=== PATIENT | female | born 1990 | race Caucasian/White ===

== ENCOUNTER 2016-11-08 08:21 | Inpatient (IN) | payer OTHER, BC ==
[~2016-11-08] VITALS: Ht 167.6 cm; Wt 74.7 kg
[2016-11-08] VITALS (12 sets, daily range): BP systolic 121–137; BP diastolic 74–77; PULSE 79–110; RESP 14–18; TEMP 98.1–98.4; O2SAT 99–100
[2016-11-08] MEDS ORDERED: ceFAZolin 2 GM PREMIX 50 ML ONE (08:27)
[2016-11-08] MEDS ORDERED: GENTAMICIN 80 MG PREMIX 100 ML ONE (08:27)
[2016-11-08] MEDS ORDERED: ETOMIDATE 20 MG/10 ML VIAL ONE (08:36)
[2016-11-08] MEDS ORDERED: MIDAZOLAM HCL 5 MG/ML VIAL (1 ML) ONE (08:44)
[2016-11-08] MEDS ORDERED: POTASSIUM PHOSPHATE INJ 30 MMOL in SODIUM CHLOR 0.9% 250 ML INJ 250 ML IV PRN (08:45)
[2016-11-08] MEDS ORDERED: RESP: ALBUTEROL 2.5 MG/IPRATROPIUM 0.5 MG NEB (PRN) INH (08:45)
[2016-11-08] MEDS ORDERED: MAGNESIUM SULFATE INJ 4 GM in SODIUM CHLORIDE 0.9% INJ 92 ML IV PRN (08:45)
[2016-11-08] MEDS ORDERED: DEXTROSE 50% IN WATER 50 ML VIAL(D50) IV PUSH PRN (08:45)
[2016-11-08] MEDS ORDERED: MAGNESIUM SULFATE INJ 2 GM in SODIUM CHLORIDE 0.9% INJ 96 ML IV PRN (08:45)
[2016-11-08] MEDS ORDERED: POTASSIUM CHLOR 40 MEQ PREMIX 100 ML IV PRN ×2 (08:45)
[2016-11-08] MEDS ORDERED: POTASSIUM PHOSPHATE MONOBASIC 500 MG TAB PO PRN (08:45)
[2016-11-08] MEDS ORDERED: POTASSIUM PHOSPHATE MONOBASIC 500 MG TAB PO/TUBE PRN (08:45)
[2016-11-08] MEDS ORDERED: MAGNESIUM OXIDE 400 MG TAB PO PRN (08:45)
[2016-11-08] MEDS ORDERED: SODIUM PHOSPHATE INJ 30 MMOL in SODIUM CHLOR 0.9% 250 ML INJ 240 ML IV PRN (08:45)
[2016-11-08] MEDS ORDERED: POTASSIUM CHLOR 20 MEQ PREMIX 100 ML IV PRN ×2 (08:45)
[2016-11-08 08:48] LABS: AUTOMATED NEUTROPHIL # 7.8 TH/MM3 (1.8-7.7); BASOPHIL # 0.1 TH/MM3 (0-0.2); BASOPHIL % 0.4 % (0.0-2.0); EOSINOPHIL # 0.2 TH/MM3 (0-0.4); EOSINOPHIL % 1.1 % (0.0-4.0); HEMATOCRIT 41.4 % (35.0-46.0); HEMO FLAGS AUTO DIFF; LYMPH % 43.2 % (9.0-44.0); LYMPHOCYTE # 6.7 TH/MM3 (1.0-4.8); MEAN CELL VOLUME 93.7 FL (80.0-100.0); MEAN CORPUSCULAR HEMOGLOBIN 30.6 PG (27.0-34.0); MEAN CORPUSCULAR HGB CONC 32.7 % (32.0-36.0); MONO % 5.3 % (0.0-8.0); PLATELET COUNT 277 TH/MM3 (150-450); RED BLOOD COUNT 4.41 MIL/MM3 (4.00-5.30); RED CELL DISTRIBUTION WIDTH 12.7 % (11.6-17.2); WHITE BLOOD COUNT 15.5 TH/MM3 (4.0-11.0)
[2016-11-08 08:55] LABS: I-STAT POTASSIUM 4.5 MMOL/L (3.5-4.9)
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
[2016-11-08 08:58] LABS: APTT (PATIENT) 22.9 SEC (24.3-30.1); PROTHROMBIN TIME - PATIENT 10.6 SEC (9.8-11.6)
[2016-11-08] MEDS ORDERED: IOHEXOL 350 MG/ML 10 ML VIAL (for RAD DIAG) IV ONE (09:07)
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
[2016-11-08 09:14] LABS: BANDS 1 % (0-6); EOSINOPHILS 3 % (0-4); NEUTROPHIL # MANUAL DIFF 6.5 TH/MM3 (1.8-7.7); POLYS (SEG NEUTROPHILS) 41 % (16-70); WBC DIFF SAMPLE 100
[2016-11-08 09:15] LABS: PLATELET ESTIMATE SMEAR NORMAL (NORMAL); PLATELET MORPHOLOGY NORMAL (NORMAL); SCAN/DIFF FINAL DIFF MANUAL
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
[2016-11-08] MEDS ORDERED: ROCURONIUM INJ 50 MG/5 ML VIAL ONE (09:35)
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
[2016-11-08] MEDS ORDERED: RESP: ALBUTEROL 2.5 MG/IPRATROPIUM 0.5 MG NEB (SCH) INH (10:00)
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
[2016-11-08] MEDS ORDERED: GENTAMICIN SULFATE 80 MG/2 ML VIAL ONE ×2 (10:59→13:38)
[2016-11-08] MEDS: fentaNYL DRIP 250 ML IV SCH ×2 (11:21→20:57)
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
[2016-11-08] MEDS ORDERED: PHENYLEPH/NS 1000 MCG/10 ML SYR IV ONE (12:00)
[2016-11-08] MEDS ORDERED: LACTATED RINGER'S 1000 ML INJ 1,000 ML IV ONE (12:00)
[2016-11-08] MEDS: INSULIN NovoLIN REGULAR SUPPLEMENTAL SCALE SQ SCH ×2 (12:00→18:00)
[2016-11-08] MEDS ORDERED: PROPOFOL 200 MG/20 ML AMP IV ONE (12:00)
[2016-11-08 12:45] LABS: BACTERIA, URINE RARE /hpf; BLOOD, URINE LARGE (NEG); COMMENT (UR) CATH-CULTURE IND; CULTURE IF INDICATED CATH CULTURE IND; GLUCOSE,URINE NEG (NEG); KETONE, URINE NEG (NEG); MUCUS URINE FEW /lpf (OCC); NITRITE,URINE NEG (NEG); PH, URINE 5.5 (5.0-8.5); URINE COLOR YELLOW (YELLW/STRAW)
[2016-11-08] MEDS: SODIUM CHLOR 0.9% 1000 ML INJ 1,000 ML IV SCH (14:00)
[2016-11-08 14:06] LABS: BLOOD GAS BASE EXCESS -5.3 mmol/L (-2-2); BLOOD GAS CARBOXYHEMOGLOBIN 0.9 % (0-4); BLOOD GAS HCO3 19 mmol/L (22-26); BLOOD GAS METHEMOGLOBIN 1.1 % (0-2); BLOOD GAS O2 HGB SATURATION 98 % (90-100); BLOOD GAS OXYGEN CONTENT 18.9 Vol % (12.0-20.0); BLOOD GAS PCO2 37 mmHg (38-42); BLOOD GAS PO2 259 mmHg (61-120); BLOOD GAS TOTAL HGB 13.4 G/DL (12.0-16.0)
[2016-11-08 14:08] LABS: CRITICAL VALUE NO; DRAW SITE RT RADIAL; FIO2 50 %; NUMBER OF ARTERIAL PUNCTURES 1; OXYGEN DEVICE VENTILATOR; STAT NO; ULNAR PULSE PRESENT; VENT SETTINGS A/C500/16PEEP5
[2016-11-08] MEDS ORDERED: ENALAPRILAT 1.25 MG/ML VIAL IV PRN (16:30)
[2016-11-08] MEDS ORDERED: MISCELLANEOUS NURSING INFORMATION XX SCH (16:30)
[2016-11-08] MEDS ORDERED: CHLORHEXIDINE GLUCONATE 2 % 1 PACK (2 CLOTHS) TOP PRN (16:30)
[2016-11-08] MEDS ORDERED: ceFAZolin INJ 1,000 MG VIAL IV ONE (17:07)
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
--- NOTE | 2016-11-08 19:07 | RADRPT ---
EXAM DATE/TIME: 11/08/2016 17:54 [facility] COMPARISON: TIBIA/FIBULA RIGHT ( 1 VW), November 08, 2016, 8:15. INDICATIONS : ORIF right tibia. MEDICAL HISTORY : None. SURGICAL HISTORY : None. ENCOUNTER: Subsequent ACUITY: 1 day PAIN SCORE: Non-responsive. LOCATION: Right lower leg. FINDINGS: 4 spot fluoroscopic images obtained in the operating room during a procedure document antegrade intra medullary kavin within the tibia proximal and distal interlocking screws. The hardware traverses the co mminuted mid tibia fracture. The fibular fracture remains visualized and slightly displaced. CONCLUSION: Improved anatomic alignment of the tibia fracture following ORIF. Juan Vizcaino MD on November 08, 2016 at 19:04 Board Certified Radiologist. This report was verified electronically.
--- NOTE | 2016-11-08 19:18 | PD.OP ---
Operative Report Date of Surgery: Nov 08, 2016 Preoperative Diagnosis: (1) Open fracture of right fibula and tibia Postoperative Diagnosis: (1) Open fracture of right fibula and tibia Procedure: 1. Irrigation and Debridement of Open Tib/Fib Fracture 2. ORIF Right Tibial Intramedullary [place] and Screws 3. Placement Left Tibia Wound VAC Over Loosely Closed Open Wound Anesthesia: General Surgeon: Mariusz Matthew MD [employer](s): JANUARY Barrientos Resident Surgeon: none Operation and Findings: See Dictation Mark Montes De Oca Nov 08, 2016 19:18 Mariusz Matthew MD Nov 08, 2016 21:59
[2016-11-08] MEDS ORDERED: fentaNYL CITRATE 250 MCG/5 ML AMP ONE (19:30)
[2016-11-08] MEDS: PANTOPRAZOLE SODIUM 40 MG VIAL IVP SCH (19:40)
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
[2016-11-08] MEDS: PROPOFOL 1000 MG/100 ML INJ 100 ML IV SCH (20:57)
[2016-11-08] MEDS: MAGNESIUM HYDROXIDE SUSP 30 ML CUP PO SCH (21:30)
[2016-11-08] MEDS: DOCUSATE SODIUM 100 MG CAP PO SCH (21:30)
[2016-11-08] MEDS: CHLORHEXIDINE 0.12% (ORAL KIT) 15 ML CUP MT SCH (21:32)
[2016-11-08] MEDS: ceFAZolin 2 GM PREMIX 50 ML IV SCH (22:03)
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
[2016-11-09] VITALS (16 sets, daily range): BP systolic 98–118; BP diastolic 50–56; PULSE 81–118; RESP 11–14; TEMP 97.1–99; O2SAT 96–100
[2016-11-09 00:26] LABS: HEMATOCRIT 33.2 % (35.0-46.0); REVIEW FLAG FINAL
[2016-11-09] MEDS ORDERED: SODIUM CHLOR 0.9% 1000 ML INJ 1,000 ML IV ONE (01:30)
[2016-11-09] MEDS: ACETAMINOPHEN 1000 MG/100 ML VIAL IV PRN ×2 (01:58→15:34)
[2016-11-09] MEDS ORDERED: SODIUM CHLORID 0.9% 500 ML INJ 500 ML IV ONE (02:00)
[2016-11-09] MEDS: SODIUM CHLOR 0.9% 1000 ML INJ 1,000 ML IV SCH ×2 (04:18→14:40)
[2016-11-09] MEDS: CHLORHEXIDINE GLUCONATE 2 % 1 PACK (2 CLOTHS) TOP SCH (04:18)
[2016-11-09] MEDS: INSULIN NovoLIN REGULAR SUPPLEMENTAL SCALE SQ SCH ×4 (05:57→18:00)
[2016-11-09 06:04] LABS: HEMATOCRIT 22.1 % (35.0-46.0); MEAN CORPUSCULAR HEMOGLOBIN 31.6 PG (27.0-34.0); MEAN CORPUSCULAR HGB CONC 34.4 % (32.0-36.0); PLATELET COUNT 117 TH/MM3 (150-450); RED CELL DISTRIBUTION WIDTH 14.7 % (11.6-17.2); REVIEW FLAG FINAL; WHITE BLOOD COUNT 7.5 TH/MM3 (4.0-11.0)
[2016-11-09] MEDS: PROPOFOL 1000 MG/100 ML INJ 100 ML IV SCH (06:31)
--- NOTE | 2016-11-09 06:46 | RADRPT ---
EXAM DATE/TIME: 11/09/2016 05:25 [facility] COMPARISON: CT THORAX W CONTRAST, November 08, 2016, 8:44. INDICATIONS : Short of breath. MEDICAL HISTORY : None. SURGICAL HISTORY : None. ENCOUNTER: Subsequent ACUITY: 2 days PAIN SCORE: Non-responsive. LOCATION: Bilateral chest FINDINGS: Mild left mid lung infiltrate not significantly changed. No pleural effusion or pneumothorax seen. Endotracheal tube tip is approximately 4 cm above the eamon. There is a nasogastric tube that course s into the stomach, and doubles back on itself and has its tip in the lower esophagus. The side hole is just below the GE junction. CONCLUSION: 1. Mild left midlung consolidation not significantly changed. 2. Endotracheal tube tip 4 cm above the eamon. 3. Coiled nasogastric tube. The tip is in the lower esophagus. Please see above. Juan Etienne MD on November 09, 2016 at 6:43 Board Certified Radiologist. This report was verified electronically.
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
[2016-11-09] MEDS: CHLORHEXIDINE 0.12% (ORAL KIT) 15 ML CUP MT SCH ×2 (07:48→20:00)
[2016-11-09] MEDS: DOCUSATE SODIUM 100 MG CAP PO SCH ×2 (07:49→21:00)
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
[2016-11-09] MEDS: ceFAZolin 2 GM PREMIX 50 ML IV SCH (10:04)
[2016-11-09 10:07] LABS: POTASSIUM 4.4 MEQ/L (3.5-5.1)
[2016-11-09 10:08] LABS: BICARBONATE 22.6 MEQ/L (21.0-32.0)
[2016-11-09 10:27] LABS: CALCIUM-PROTEIN CORRECTED 7.5 MG/DL (8.5-10.1)
[2016-11-09 10:54] LABS: HEMATOCRIT 29.5 % (35.0-46.0); REVIEW FLAG FINAL
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
[2016-11-09] MEDS: PANTOPRAZOLE SODIUM 40 MG VIAL IVP SCH (15:44)
[2016-11-09] MEDS: METHOCARBAMOL 500 MG TAB PO SCH (15:44)
[2016-11-09] MEDS: MORPHINE SULFATE 4 MG/ML INJ IV PUSH PRN ×3 (15:44→23:52)
[2016-11-09 16:41] LABS: HEMATOCRIT 22.9 % (35.0-46.0); REVIEW FLAG FINAL
[2016-11-09] MEDS: MAGNESIUM HYDROXIDE SUSP 30 ML CUP PO SCH (21:00)
[2016-11-09 23:45] LABS: HEMATOCRIT 35.7 % (35.0-46.0); REVIEW FLAG FINAL
[2016-11-10] VITALS (14 sets, daily range): BP systolic 113–143; BP diastolic 63–81; PULSE 86–112; RESP 14–20; TEMP 98.4–101; O2SAT 95–100
[2016-11-10] MEDS: ACETAMINOPHEN 1000 MG/100 ML VIAL IV PRN ×3 (00:34→20:14)
[2016-11-10] MEDS: MORPHINE SULFATE 4 MG/ML INJ IV PUSH PRN ×2 (03:33→11:53)
[2016-11-10 04:25] LABS: AUTOMATED NEUTROPHIL # 10.6 TH/MM3 (1.8-7.7); BASOPHIL % 0.2 % (0.0-2.0); EOSINOPHIL # 0.1 TH/MM3 (0-0.4); EOSINOPHIL % 0.8 % (0.0-4.0); HEMATOCRIT 31.4 % (35.0-46.0); HEMO FLAGS DIFF FINAL; LYMPH % 8.5 % (9.0-44.0); LYMPHOCYTE # 1.1 TH/MM3 (1.0-4.8); MEAN CELL VOLUME 87.2 FL (80.0-100.0); MEAN CORPUSCULAR HEMOGLOBIN 29.9 PG (27.0-34.0); MEAN CORPUSCULAR HGB CONC 34.3 % (32.0-36.0); MONO % 9.7 % (0.0-8.0); NEUT % 80.8 % (16.0-70.0); PLATELET COUNT 105 TH/MM3 (150-450); RED CELL DISTRIBUTION WIDTH 16.8 % (11.6-17.2); WHITE BLOOD COUNT 13.1 TH/MM3 (4.0-11.0)
[2016-11-10 04:31] LABS: BICARBONATE 27.4 MEQ/L (21.0-32.0); CALCIUM-PROTEIN CORRECTED 7.7 MG/DL (8.5-10.1); MAGNESIUM 1.6 MG/DL (1.5-2.5); TOTAL BILIRUBIN ADULT 0.7 MG/DL (0.2-1.0)
[2016-11-10] MEDS: CHLORHEXIDINE GLUCONATE 2 % 1 PACK (2 CLOTHS) TOP SCH (05:00)
[2016-11-10] MEDS: SODIUM CHLOR 0.9% 1000 ML INJ 1,000 ML IV SCH ×2 (05:00→14:14)
[2016-11-10] MEDS: INSULIN NovoLIN REGULAR SUPPLEMENTAL SCALE SQ SCH ×2 (05:07)
[2016-11-10 05:39] LABS: BLOOD GAS BASE EXCESS 0.7 mmol/L (-2-2); BLOOD GAS CARBOXYHEMOGLOBIN 1.6 % (0-4); BLOOD GAS HCO3 26 mmol/L (22-26); BLOOD GAS METHEMOGLOBIN 0.8 % (0-2); BLOOD GAS O2 HGB SATURATION 96 % (90-100); BLOOD GAS OXYGEN CONTENT 13.7 Vol % (12.0-20.0); BLOOD GAS PCO2 49 mmHg (38-42); BLOOD GAS PO2 98 mmHg (61-120); BLOOD GAS TOTAL HGB 10.1 G/DL (12.0-16.0); CRITICAL VALUE NO; DRAW SITE LT RADIAL; LITER FLOW 4 L/M; NUMBER OF ARTERIAL PUNCTURES 1; OXYGEN DEVICE NASAL CANNULA; STAT NO; TEMP CORR TO 98.6; ULNAR PULSE PRESENT
--- NOTE | 2016-11-10 05:39 | RADRPT ---
EXAM DATE/TIME: 11/10/2016 04:00 [facility] COMPARISON: CHEST SINGLE AP, November 09, 2016, 5:25. INDICATIONS : Shortness of breath. MEDICAL HISTORY : None. SURGICAL HISTORY : None. ENCOUNTER: Subsequent ACUITY: 3 days PAIN SCORE: 7/10 LOCATION: Bilateral chest FINDINGS: Mild consolidation developing left lung base. No effusion demonstrated. No pneumothorax. Heart size stable, upper limits of normal. Endotracheal tube and nasogastric tube have been removed. CONCLUSION: Interim extubation and nasogastric tube removal. Mild left base consolidation has developed. Juan Etienne MD on November 10, 2016 at 5:36 Board Certified Radiologist. This report was verified electronically.
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
[2016-11-10] MEDS: CHLORHEXIDINE 0.12% (ORAL KIT) 15 ML CUP MT SCH ×2 (07:48→20:00)
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
[2016-11-10] MEDS: METHOCARBAMOL 500 MG TAB PO SCH ×4 (08:00→23:36)
[2016-11-10] MEDS: LACTULOSE SYRUP 20 GM/30 ML CUP PO SCH (08:30)
[2016-11-10] MEDS: DOCUSATE SODIUM 100 MG CAP PO SCH ×2 (08:30→20:01)
[2016-11-10 09:07] LABS: HEMATOCRIT 28.7 % (35.0-46.0)
[2016-11-10 09:13] LABS: REVIEW FLAG FINAL
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
[2016-11-10] MEDS ORDERED: PROZ20CA11 PO (10:05)
[2016-11-10] MEDS: FLUoxetine HCL 20 MG CAP PO SCH (10:15)
[2016-11-10] MEDS: ENOXAPARIN SODIUM 40 MG/0.4 ML SYRINGE SQ SCH (10:40)
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
[2016-11-10] MEDS: PANTOPRAZOLE SODIUM 40 MG VIAL IVP SCH (17:00)
[2016-11-10] MEDS: MAGNESIUM HYDROXIDE SUSP 30 ML CUP PO SCH (20:01)
[2016-11-11] VITALS (11 sets, daily range): BP systolic 105–122; BP diastolic 60–87; PULSE 83–107; RESP 13–18; TEMP 98.4–99.7; O2SAT 95–100
[2016-11-11] MEDS: MORPHINE SULFATE 4 MG/ML INJ IV PUSH PRN (03:04)
[2016-11-11 04:16] LABS: AUTOMATED NEUTROPHIL # 10.6 TH/MM3 (1.8-7.7); BASOPHIL % 0.2 % (0.0-2.0); EOSINOPHIL # 0.2 TH/MM3 (0-0.4); EOSINOPHIL % 1.5 % (0.0-4.0); HEMATOCRIT 29.6 % (35.0-46.0); HEMO FLAGS DIFF FINAL; LYMPH % 7.8 % (9.0-44.0); MEAN CELL VOLUME 87.8 FL (80.0-100.0); MEAN CORPUSCULAR HEMOGLOBIN 29.9 PG (27.0-34.0); MEAN CORPUSCULAR HGB CONC 34.1 % (32.0-36.0); MONO % 9.8 % (0.0-8.0); NEUT % 80.7 % (16.0-70.0); PLATELET COUNT 116 TH/MM3 (150-450); RED BLOOD COUNT 3.37 MIL/MM3 (4.00-5.30); RED CELL DISTRIBUTION WIDTH 16.1 % (11.6-17.2); WHITE BLOOD COUNT 13.2 TH/MM3 (4.0-11.0)
[2016-11-11 04:29] LABS: ANION GAP 9 MEQ/L (5-15); AST (GOT) 76 U/L (15-37); BICARBONATE 26.5 MEQ/L (21.0-32.0); BLOOD UREA NITROGEN 5 MG/DL (7-18); CHLORIDE 106 MEQ/L (98-107); GLOMERULAR FILTRATION RATE 197 ML/MIN (>89); MAGNESIUM 2.1 MG/DL (1.5-2.5); POTASSIUM 3.3 MEQ/L (3.5-5.1); SODIUM (NA) 141 MEQ/L (136-145)
[2016-11-11 04:39] LABS: ALKALINE PHOSPHATASE 59 U/L (45-117); ALT (GPT) 66 U/L (10-53); TOTAL BILIRUBIN ADULT 0.5 MG/DL (0.2-1.0)
[2016-11-11] MEDS: SODIUM CHLOR 0.9% 1000 ML INJ 1,000 ML IV SCH (06:40)
[2016-11-11] MEDS: CHLORHEXIDINE GLUCONATE 2 % 1 PACK (2 CLOTHS) TOP SCH (07:00)
[2016-11-11] MEDS: CHLORHEXIDINE 0.12% (ORAL KIT) 15 ML CUP MT SCH (07:55)
[2016-11-11] MEDS: METHOCARBAMOL 500 MG TAB PO SCH ×2 (08:12→16:25)
[2016-11-11] MEDS: FLUoxetine HCL 20 MG CAP PO SCH (08:12)
[2016-11-11] MEDS: ENOXAPARIN SODIUM 40 MG/0.4 ML SYRINGE SQ SCH (08:12)
[2016-11-11] MEDS: DOCUSATE SODIUM 100 MG CAP PO SCH ×2 (08:12→20:31)
[2016-11-11] MEDS: LACTULOSE SYRUP 20 GM/30 ML CUP PO SCH (08:12)
[2016-11-11] MEDS ORDERED: BISACODYL 10 MG SUPP RECTAL ONE (09:00)
[2016-11-11] MEDS ORDERED: BISACODYL EC 5 MG TABEC PO ONE (09:00)
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
[2016-11-11] MEDS ORDERED: BUMETANIDE INJ 1 MG/4 ML VIAL IV PUSH ONE (14:30)
[2016-11-11] MEDS: PANTOPRAZOLE SODIUM 40 MG VIAL IVP SCH (16:25)
[2016-11-11] MEDS: MAGNESIUM HYDROXIDE SUSP 30 ML CUP PO SCH (20:31)
[2016-11-11] MEDS: ACETAMINOPHEN 1000 MG/100 ML VIAL IV PRN (21:36)
[2016-11-11] MEDS: oxyCODONE/ACETAMINOPHEN 5 MG/325 MG TAB PO PRN (21:37)
[2016-11-12] VITALS (14 sets, daily range): BP systolic 115–146; BP diastolic 54–93; PULSE 67–93; RESP 14–22; TEMP 97.4–99.5; O2SAT 92–98
[2016-11-12] MEDS: METHOCARBAMOL 500 MG TAB PO SCH ×4 (02:39→23:47)
[2016-11-12] MEDS: CHLORHEXIDINE GLUCONATE 2 % 1 PACK (2 CLOTHS) TOP SCH (05:16)
[2016-11-12] MEDS: oxyCODONE/ACETAMINOPHEN 5 MG/325 MG TAB PO PRN (06:18)
[2016-11-12 06:27] LABS: AUTOMATED NEUTROPHIL # 14.9 TH/MM3 (1.8-7.7); BASOPHIL # 0.1 TH/MM3 (0-0.2); BASOPHIL % 0.3 % (0.0-2.0); EOSINOPHIL # 0.4 TH/MM3 (0-0.4); EOSINOPHIL % 2.2 % (0.0-4.0); HEMATOCRIT 30.6 % (35.0-46.0); LYMPH % 10.8 % (9.0-44.0); LYMPHOCYTE # 2.1 TH/MM3 (1.0-4.8); MEAN CELL VOLUME 88.4 FL (80.0-100.0); MEAN CORPUSCULAR HEMOGLOBIN 30.4 PG (27.0-34.0); MEAN CORPUSCULAR HGB CONC 34.4 % (32.0-36.0); MONO % 10.3 % (0.0-8.0); NEUT % 76.4 % (16.0-70.0); PLATELET COUNT 178 TH/MM3 (150-450); RED BLOOD COUNT 3.47 MIL/MM3 (4.00-5.30); RED CELL DISTRIBUTION WIDTH 15.5 % (11.6-17.2); WHITE BLOOD COUNT 19.6 TH/MM3 (4.0-11.0)
[2016-11-12 06:43] LABS: ALT (GPT) 53 U/L (10-53); ANION GAP 7 MEQ/L (5-15); AST (GOT) 51 U/L (15-37); BICARBONATE 30.4 MEQ/L (21.0-32.0); BLOOD UREA NITROGEN 8 MG/DL (7-18); CHLORIDE 103 MEQ/L (98-107); GLOMERULAR FILTRATION RATE 197 ML/MIN (>89); MAGNESIUM 2.4 MG/DL (1.5-2.5); POTASSIUM 3.3 MEQ/L (3.5-5.1); SODIUM (NA) 140 MEQ/L (136-145)
[2016-11-12 06:46] LABS: ALKALINE PHOSPHATASE 67 U/L (45-117); TOTAL BILIRUBIN ADULT 0.7 MG/DL (0.2-1.0)
[2016-11-12 07:30] LABS: HEMO FLAGS AUTO DIFF
[2016-11-12 07:35] LABS: BANDS 7 % (0-6); CORRECTED NUCLEATED RBC 1 /100 WBC (0-0); EOSINOPHILS 3 % (0-4); NEUTROPHIL # MANUAL DIFF 15.9 TH/MM3 (1.8-7.7); PLATELET ESTIMATE SMEAR NORMAL (NORMAL); PLATELET MORPHOLOGY CLUMPED (NORMAL); POLYS (SEG NEUTROPHILS) 74 % (16-70); SCAN/DIFF FINAL DIFF MANUAL; WBC DIFF SAMPLE 100
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
[2016-11-12] MEDS: DOCUSATE SODIUM 100 MG CAP PO SCH (08:18)
[2016-11-12] MEDS: LACTULOSE SYRUP 20 GM/30 ML CUP PO SCH (08:18)
[2016-11-12] MEDS: FLUoxetine HCL 20 MG CAP PO SCH (08:18)
[2016-11-12] MEDS: DOCUSATE SODIUM 50 MG/SENNA 8.6 MG TAB PO SCH ×2 (09:00→20:39)
[2016-11-12] MEDS: ENOXAPARIN SODIUM 40 MG/0.4 ML SYRINGE SQ SCH (10:44)
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
[2016-11-12] MEDS: ACETAMINOPHEN 325 MG TAB PO PRN (16:23)
[2016-11-12] MEDS: PANTOPRAZOLE SODIUM 40 MG VIAL IVP SCH (16:23)
[2016-11-12] MEDS: ONDANSETRON HCL 4 MG/2 ML VIAL IV PRN (17:01)
[2016-11-12] MEDS: MAGNESIUM HYDROXIDE SUSP 30 ML CUP PO SCH (20:39)
--- NOTE | 2016-11-12 22:45 | RADRPT ---
EXAM DATE/TIME: 11/12/2016 22:17 [facility] COMPARISON: No previous studies available for comparison. INDICATIONS : Abdominal distension, nausea starting today MEDICAL HISTORY : None. SURGICAL HISTORY : None. ENCOUNTER: Initial ACUITY: 1 day PAIN SCORE: Non-responsive. LOCATION: Bilateral abdomen FINDINGS: 2 supine frontal views of the abdomen show gas distended loops of large bowel and small bowel. Gas is seen to the level of the rectal vault. No gross pneumoperitoneum in the supine images. A left lower lobe intra-alveolar infiltrate observed. No organomegaly. CONCLUSION: 1. Ileus type bowel gas pattern. 2. Left lower lobe infiltrate. Marquise Rowan Jr., MD on November 12, 2016 at 22:42 Board Certified Radiologist. This report was verified electronically.
[2016-11-12] MEDS ORDERED: MORPHINE SULFATE 4 MG/ML INJ IV PUSH PRN (23:45)
[2016-11-12] MEDS: SODIUM CHLOR 0.9% 1000 ML INJ 1,000 ML IV SCH (23:49)
[2016-11-13] VITALS (7 sets, daily range): BP systolic 130–149; BP diastolic 78–92; PULSE 66–80; RESP 18–20; TEMP 96.1–98.5; O2SAT 91–100
[2016-11-13] MEDS: CHLORHEXIDINE GLUCONATE 2 % 1 PACK (2 CLOTHS) TOP SCH (00:03)
[2016-11-13 06:13] LABS: ALT (GPT) 50 U/L (10-53); ANION GAP 9 MEQ/L (5-15); AST (GOT) 49 U/L (15-37); BICARBONATE 24.3 MEQ/L (21.0-32.0); BLOOD UREA NITROGEN 9 MG/DL (7-18); CHLORIDE 104 MEQ/L (98-107); GLOMERULAR FILTRATION RATE 197 ML/MIN (>89); MAGNESIUM 2.3 MG/DL (1.5-2.5); POTASSIUM 3.9 MEQ/L (3.5-5.1)
[2016-11-13 06:15] LABS: ALKALINE PHOSPHATASE 63 U/L (45-117); TOTAL BILIRUBIN ADULT 0.7 MG/DL (0.2-1.0)
[2016-11-13 06:23] LABS: SODIUM (NA) 137 MEQ/L (136-145)
[2016-11-13 07:09] LABS: AUTOMATED NEUTROPHIL # 11.7 TH/MM3 (1.8-7.7); BASOPHIL # 0.1 TH/MM3 (0-0.2); BASOPHIL % 0.6 % (0.0-2.0); EOSINOPHIL # 0.2 TH/MM3 (0-0.4); EOSINOPHIL % 1.4 % (0.0-4.0); HEMATOCRIT 34.8 % (35.0-46.0); LYMPH % 10.5 % (9.0-44.0); LYMPHOCYTE # 1.7 TH/MM3 (1.0-4.8); MEAN CELL VOLUME 87.1 FL (80.0-100.0); MEAN CORPUSCULAR HEMOGLOBIN 29.6 PG (27.0-34.0); NEUT % 73.5 % (16.0-70.0); PLATELET COUNT 147 TH/MM3 (150-450); RED BLOOD COUNT 3.99 MIL/MM3 (4.00-5.30); RED CELL DISTRIBUTION WIDTH 15.2 % (11.6-17.2); WHITE BLOOD COUNT 15.9 TH/MM3 (4.0-11.0)
[2016-11-13 07:10] LABS: HEMO FLAGS AUTO DIFF
[2016-11-13 07:44] LABS: BANDS 6 % (0-6); CORRECTED NUCLEATED RBC 1 /100 WBC (0-0); EOSINOPHILS 4 % (0-4); METAMYELOCYTES 1 % (0-1); POLYS (SEG NEUTROPHILS) 62 % (16-70); SCAN/DIFF FINAL DIFF MANUAL; WBC DIFF SAMPLE 100
[2016-11-13] MEDS ORDERED: MAGNESIUM CITRATE SOLN 300 ML BTL PO ONE (08:15)
[2016-11-13] MEDS: METHOCARBAMOL 500 MG TAB PO SCH ×3 (08:44→23:20)
[2016-11-13] MEDS: LACTULOSE SYRUP 20 GM/30 ML CUP PO SCH (08:44)
[2016-11-13] MEDS: FLUoxetine HCL 20 MG CAP PO SCH (08:44)
[2016-11-13] MEDS: DOCUSATE SODIUM 50 MG/SENNA 8.6 MG TAB PO SCH ×2 (08:45→20:52)
[2016-11-13] MEDS: SODIUM CHLOR 0.9% 1000 ML INJ 1,000 ML IV SCH ×2 (08:45→18:25)
[2016-11-13] MEDS: ENOXAPARIN SODIUM 40 MG/0.4 ML SYRINGE SQ SCH (11:12)
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
[2016-11-13] MEDS ORDERED: BISACODYL EC 5 MG TABEC PO ONE (15:00)
[2016-11-13] MEDS ORDERED: BISACODYL 10 MG SUPP RECTAL ONE (15:00)
[2016-11-13] MEDS: PANTOPRAZOLE SODIUM 40 MG VIAL IVP SCH (18:23)
[2016-11-13] MEDS: SODIUM CHLORIDE 0.9% FLUSH 10 ML FLUSH IV FLUSH PRN (18:23)
[2016-11-13] MEDS: MAGNESIUM HYDROXIDE SUSP 30 ML CUP PO SCH (20:51)
[2016-11-14] VITALS (7 sets, daily range): BP systolic 116–133; BP diastolic 65–76; PULSE 69–83; RESP 16–20; TEMP 96.9–99; O2SAT 95–100
[2016-11-14] MEDS: CHLORHEXIDINE GLUCONATE 2 % 1 PACK (2 CLOTHS) TOP SCH (00:58)
[2016-11-14] MEDS: SODIUM CHLOR 0.9% 1000 ML INJ 1,000 ML IV SCH ×2 (02:14→17:27)
[2016-11-14] MEDS ORDERED: QUEtiapine FUMARATE 25 MG TAB PO SCH (03:00)
[2016-11-14 07:42] LABS: AUTOMATED NEUTROPHIL # 7.2 TH/MM3 (1.8-7.7); BASOPHIL % 0.3 % (0.0-2.0); EOSINOPHIL # 0.4 TH/MM3 (0-0.4); EOSINOPHIL % 3.8 % (0.0-4.0); HEMATOCRIT 30.1 % (35.0-46.0); LYMPH % 16.2 % (9.0-44.0); LYMPHOCYTE # 1.8 TH/MM3 (1.0-4.8); MEAN CELL VOLUME 88.3 FL (80.0-100.0); MEAN CORPUSCULAR HEMOGLOBIN 29.9 PG (27.0-34.0); MEAN CORPUSCULAR HGB CONC 33.9 % (32.0-36.0); MONO % 13.1 % (0.0-8.0); NEUT % 66.6 % (16.0-70.0); PLATELET COUNT 206 TH/MM3 (150-450); RED BLOOD COUNT 3.41 MIL/MM3 (4.00-5.30); RED CELL DISTRIBUTION WIDTH 14.9 % (11.6-17.2); WHITE BLOOD COUNT 10.8 TH/MM3 (4.0-11.0)
[2016-11-14 07:52] LABS: HEMO FLAGS AUTO DIFF
[2016-11-14] MEDS: METHOCARBAMOL 500 MG TAB PO SCH ×2 (08:00→16:00)
[2016-11-14 08:10] LABS: ANION GAP 11 MEQ/L (5-15); AST (GOT) 64 U/L (15-37); BICARBONATE 22.9 MEQ/L (21.0-32.0); BLOOD UREA NITROGEN 9 MG/DL (7-18); CHLORIDE 104 MEQ/L (98-107); GLOMERULAR FILTRATION RATE 278 ML/MIN (>89); MAGNESIUM 2.4 MG/DL (1.5-2.5); POTASSIUM 3.3 MEQ/L (3.5-5.1); SODIUM (NA) 138 MEQ/L (136-145)
[2016-11-14 08:13] LABS: ALKALINE PHOSPHATASE 64 U/L (45-117); ALT (GPT) 61 U/L (10-53); TOTAL BILIRUBIN ADULT 0.9 MG/DL (0.2-1.0)
[2016-11-14 09:02] LABS: BANDS 2 % (0-6); EOSINOPHILS 4 % (0-4); METAMYELOCYTES 2 % (0-1); MYELOCYTES 1 % (0-0); NEUTROPHIL # MANUAL DIFF 8.3 TH/MM3 (1.8-7.7); PLATELET ESTIMATE SMEAR NORMAL (NORMAL); PLATELET MORPHOLOGY NORMAL (NORMAL); POLYS (SEG NEUTROPHILS) 72 % (16-70); SCAN/DIFF FINAL DIFF MANUAL; WBC DIFF SAMPLE 100
[2016-11-14] MEDS ORDERED: POTASSIUM CHLORIDE 20 MEQ CONTROLLED RELEASE TAB PO ONE (09:30)
[2016-11-14] MEDS: DOCUSATE SODIUM 50 MG/SENNA 8.6 MG TAB PO SCH ×2 (09:59→20:53)
[2016-11-14] MEDS: QUEtiapine FUMARATE 25 MG TAB PO SCH ×3 (09:59→20:56)
[2016-11-14] MEDS: LACTULOSE SYRUP 20 GM/30 ML CUP PO SCH (09:59)
[2016-11-14] MEDS ORDERED: ACETAMINOPHEN 325 MG TAB PO PRN (10:00)
[2016-11-14] MEDS: FLUoxetine HCL 20 MG CAP PO SCH (10:02)
[2016-11-14] MEDS: ENOXAPARIN SODIUM 40 MG/0.4 ML SYRINGE SQ SCH (10:03)
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
[2016-11-14] MEDS: SODIUM CHLORIDE 0.9% FLUSH 10 ML FLUSH IV FLUSH PRN (17:26)
[2016-11-14] MEDS: PANTOPRAZOLE SODIUM 40 MG VIAL IVP SCH (17:26)
[2016-11-14] MEDS ORDERED: POTASSIUM CHLORIDE 10 MEQ CAP PO ONE (18:00)
[2016-11-14] MEDS: MAGNESIUM HYDROXIDE SUSP 30 ML CUP PO SCH (20:53)
[2016-11-15 00:43] VITALS: BP 125/79; PULSE 86; RESP 17; TEMP 99.9; O2SAT 94
[2016-11-15] MEDS: CHLORHEXIDINE GLUCONATE 2 % 1 PACK (2 CLOTHS) TOP SCH (00:46)
[2016-11-15] MEDS: SODIUM CHLOR 0.9% 1000 ML INJ 1,000 ML IV SCH ×2 (00:54→11:00)
[2016-11-15] MEDS: ACETAMINOPHEN 325 MG TAB PO PRN ×2 (04:18→23:43)
[2016-11-15 07:04] LABS: HEMATOCRIT 29.9 % (35.0-46.0); MEAN CELL VOLUME 88.4 FL (80.0-100.0); MEAN CORPUSCULAR HEMOGLOBIN 29.4 PG (27.0-34.0); MEAN CORPUSCULAR HGB CONC 33.2 % (32.0-36.0); PLATELET COUNT 231 TH/MM3 (150-450); RED BLOOD COUNT 3.38 MIL/MM3 (4.00-5.30); REVIEW FLAG FINAL; WHITE BLOOD COUNT 11.8 TH/MM3 (4.0-11.0)
[2016-11-15] MEDS: METHOCARBAMOL 500 MG TAB PO SCH ×3 (07:17→15:23)
[2016-11-15 07:24] LABS: BICARBONATE 24.4 MEQ/L (21.0-32.0); POTASSIUM 3.3 MEQ/L (3.5-5.1)
[2016-11-15 07:47] LABS: CALCIUM-PROTEIN CORRECTED 8.4 MG/DL (8.5-10.1)
[2016-11-15 07:59] VITALS: BP 132/75; PULSE 71; RESP 18; TEMP 96; O2SAT 94
[2016-11-15] MEDS: LACTULOSE SYRUP 20 GM/30 ML CUP PO SCH (09:00)
[2016-11-15] MEDS: QUEtiapine FUMARATE 25 MG TAB PO SCH (09:00)
[2016-11-15] MEDS: DOCUSATE SODIUM 50 MG/SENNA 8.6 MG TAB PO SCH ×2 (09:00→21:00)
[2016-11-15] MEDS: FLUoxetine HCL 20 MG CAP PO SCH (09:32)
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
[2016-11-15] MEDS: ENOXAPARIN SODIUM 40 MG/0.4 ML SYRINGE SQ SCH (09:37)
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
[2016-11-15 11:52] VITALS: BP 123/76; PULSE 78; RESP 18; TEMP 96.4; O2SAT 97
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
[2016-11-15 15:42] VITALS: BP 127/81; PULSE 79; RESP 18; TEMP 96; O2SAT 97
--- NOTE | 2016-11-15 17:58 | PD.WCN.NOT ---
Wound Consult Description: Patient seen on for evaluation of wounds to R medial calf and L hip. Removed Dressing to R medial calf to reveal large abrasion. Wound presents with 100% pink tissue and cant serous drainage without odor. Wound measures ~10 cm x ~11 cm x~<0.1cm. Periwound is unremarkable.Cleansed wound with normal saline and applied Xeroform dressing in single layer over wound and covered with bordered gauze. skin prep applied before applying adhesive dressing. Reclined patient back in recliner chair and positioned patient slightly to R side. Removed ABD pad and bordered gauze dressing in place to reveal wounds L hip area. 2 full thickness wounds assessed. Wound bed to larger L hip wound that is located more posteriorly, presents with full thickness skin loss that is trauma related. Wound bed noted with ~20% red non granulation tissue, ~70% white facia, ~10% yellow tissue. Wound is draining a moderate amount of sero- sanguinous drainage.Wound measures ~4cm x ~2cm x ~0.4 cm. Periwound presents with ecchymosis between 1 and 6 o'clock Wound to L hip that is noted more anteriorly presents smaller ~1 cm x ~1 cm x ~ 0.1 cm.Wound is noted with 50% pink tissue and 50% yellow tissue.Wound has scant sero-sanguinous drainage without odor. Cleansed both wounds to L hip with wound cleanser and applied optilock and secured with bordered gauze. Applied skin prep before applying adhesive dressing Communicated with: LAURI Martin and Thea SIN for Trauma Recommendation: Recommend to cleanse wound to R medial calf with normal saline and apply Xeroform gauze dressing in place just over wound bed and secure with bordered gauze. Please change dressing every other day or PRN if saturated or dislodged Please cleanse wounds to L hip with wound cleanser or normal saline and apply oil emulsion gauze over exposed facia. Cover with Maxorb II dressing (calcium alginate) and secure dressings with ABD pad and tape. Please apply skin prep before applying adhesives to skin.Change dressing every 2 days or PRN if saturated or dislodged. Ostomy Date of Surgery: Nov 08, 2016 [facility] She[facility] Nov 15, 2016 17:58
[2016-11-15] MEDS ORDERED: ENOX40P SQ (19:14)
[2016-11-15] MEDS ORDERED: Lactulose Liq PO (19:14)
[2016-11-15] MEDS ORDERED: MAGN400S PO (19:14)
[2016-11-15] MEDS ORDERED: ACET1TAB86 PO (19:14)
[2016-11-15] MEDS ORDERED: METH500T3 PO (19:14)
[2016-11-15] MEDS ORDERED: FLUO20CA12 PO (19:14)
[2016-11-15] MEDS ORDERED: SENN1TAB PO (19:14)
[2016-11-15] MEDS ORDERED: FAMO20TA2 PO (19:14)
[2016-11-15 20:10] VITALS: BP 116/76; PULSE 76; RESP 16; TEMP 98.8; O2SAT 98
[2016-11-15] MEDS: MAGNESIUM HYDROXIDE SUSP 30 ML CUP PO SCH (21:00)
[2016-11-15] MEDS ORDERED: FAMOTIDINE 20 MG TAB PO SCH (21:00)
[2016-11-15] MEDS: SODIUM CHLORIDE 0.9% FLUSH 10 ML FLUSH IV FLUSH PRN (21:11)
[2016-11-15] MEDS: METHOCARBAMOL 500 MG TAB PO PRN (22:10)
[2016-11-16 00:10] VITALS: BP 136/83; PULSE 66; RESP 16; TEMP 97.1; O2SAT 100
[2016-11-16 04:50] VITALS: BP 120/74; PULSE 59; RESP 16; TEMP 97.2; O2SAT 100
[2016-11-16] MEDS: METHOCARBAMOL 500 MG TAB PO PRN (07:41)
[2016-11-16] MEDS: FLUoxetine HCL 20 MG CAP PO SCH (07:41)
[2016-11-16] MEDS: ACETAMINOPHEN 325 MG TAB PO PRN (07:43)
[2016-11-16] MEDS: DOCUSATE SODIUM 50 MG/SENNA 8.6 MG TAB PO SCH (07:47)
[2016-11-16] MEDS: LACTULOSE SYRUP 20 GM/30 ML CUP PO SCH (07:47)
[2016-11-16 08:00] VITALS: BP 126/85; PULSE 63; RESP 17; TEMP 96; O2SAT 98
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
[2016-11-16] MEDS: ONDANSETRON HCL 4 MG/2 ML VIAL IV PRN (10:12)
[2016-11-16] MEDS: ENOXAPARIN SODIUM 40 MG/0.4 ML SYRINGE SQ SCH (10:13)
[2016-11-16 11:23] VITALS: O2SAT 98
[2016-11-16 12:00] VITALS: BP 125/80; PULSE 64; RESP 17; TEMP 98.1; O2SAT 98
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
== END 2016-11-16 14:47 | DRG 957 ==
LOC: NEPI 08:21 → NEDA 09:18 → EDBD 09:18 → N03B 09:28 → N06B 11-12 14:14
PROVIDERS: ADMIT Surgery; ATTEND Surgery
PROC: 0BH17EZ Insertion of Endotracheal Airway into Trachea, Via Natural or Artificial Opening (ICD-10-PCS; 2016-11-08)
PROC: 5A1935Z Respiratory Ventilation, Less than 24 Consecutive Hours (ICD-10-PCS; 2016-11-08)
PROC: 30233N1 Transfusion of Nonautologous Red Blood Cells into Peripheral Vein, Percutaneous Approach (ICD-10-PCS; 2016-11-08)
PROC: 0QSG06Z Reposition Right Tibia with Intramedullary Internal Fixation Device, Open Approach (ICD-10-PCS; principal; 2016-11-08 16:37)
DX: S82.291B Other fracture of shaft of right tibia, initial encounter for open fracture type I or II (principal); J96.01 Acute respiratory failure with hypoxia; S36.114A Minor laceration of liver, initial encounter; S12.000A Unspecified displaced fracture of first cervical vertebra, initial encounter for closed fracture; G93.40 Encephalopathy, unspecified; S36.030A Superficial (capsular) laceration of spleen, initial encounter; J96.02 Acute respiratory failure with hypercapnia; R65.10 Systemic inflammatory response syndrome (SIRS) of non-infectious origin without acute organ dysfunction; I95.9 Hypotension, unspecified; S32.049A Unspecified fracture of fourth lumbar vertebra, initial encounter for closed fracture; S32.059A Unspecified fracture of fifth lumbar vertebra, initial encounter for closed fracture; S12.101A Unspecified nondisplaced fracture of second cervical vertebra, initial encounter for closed fracture; D62 Acute posthemorrhagic anemia; K56.7 Ileus, unspecified; E86.1 Hypovolemia; S82.491B Other fracture of shaft of right fibula, initial encounter for open fracture type I or II; W22.12XA Striking against or struck by front passenger side automobile airbag, initial encounter; Y92.410 Unspecified street and highway as the place of occurrence of the external cause; S00.01XA Abrasion of scalp, initial encounter; S70.212A Abrasion, left hip, initial encounter; S30.1XXA Contusion of abdominal wall, initial encounter; S06.9X0A Unspecified intracranial injury without loss of consciousness, initial encounter; R40.2432 Glasgow coma scale score 3-8, at arrival to emergency department; R73.9 Hyperglycemia, unspecified; R00.0 Tachycardia, unspecified; D72.828 Other elevated white blood cell count; V49.50XA Passenger injured in collision with unspecified motor vehicles in traffic accident, initial encounter
CPT/HCPCS: 36430; 36600; 70450; 70486; 71010; 71260; 72125; 72170; 73590; 74000; 74177; 76000; 80048; 80053; 81001; 82435; 82565; 82805; 82947; 82948; 83690; 83735; 84100; 84132; 84155; 84295; 84520; 85007; 85014; 85018; 85025; 85027; 85610; 85730; 86850; 86900; 86901; 86920; 87086; 87641; 94002; 94003; 94150; 94640; 94664; 94667; 94668; C1713; C9113; J0131; J0690; J1580; J1650; J2250; J2270; J2370; J2405; J3010; J7030; J7040; J7050; J7120; L0150; L0172; L1830; L2114; P9016; Q9967

== ENCOUNTER 2016-11-18 09:50 | Inpatient (IN) | payer OTHER, BC ==
[~2016-11-18] VITALS: Ht 167.6 cm; Wt 70.7 kg
[~2016-11-18 09:50] MED LIST: ACET1TAB86 PO; ENOX40P SQ; FAMO20TA2 PO; FLUO10CA4 PO; LACT PO; LEVA750T9 PO; Lactulose Liq PO; MAGN400S PO; METH500T3 PO; ONDA4TAB7 PO; PROZ20CA11 PO; SCOP1PAT2 T-DERMAL; SENN1TAB PO; SIME1CHW11 PO; TRAZ50TA12 PO
[2016-11-18] MEDS ORDERED: ACETAMINOPHEN 325 MG TAB PO PRN (13:15)
[2016-11-18] MEDS ORDERED: Vancomycin Consult Pharmacy 1 EA OTHER SCH (13:30)
[2016-11-18] MEDS ORDERED: MAGNESIUM HYDROXIDE SUSP 30 ML CUP PO PRN (14:15)
[2016-11-18] MEDS ORDERED: SODIUM CHLORIDE 0.9% FLUSH 10 ML FLUSH IV FLUSH PRN (14:15)
[2016-11-18] MEDS ORDERED: NALOXONE HCL 0.4 MG/ML AMP IV PRN (14:15)
[2016-11-18] MEDS ORDERED: MORPHINE SULFATE 4 MG/ML INJ IV PRN (14:15)
[2016-11-18 14:25] VITALS: BP 116/66; PULSE 60; RESP 18; TEMP 96; O2SAT 100
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
[2016-11-18 16:00] VITALS: BP 131/58; PULSE 63; RESP 18; TEMP 99.2; O2SAT 100
[2016-11-18] MEDS: PIPERACIL-TAZO 4.5 GM PREMIX 100 ML IV SCH ×2 (16:18→22:14)
[2016-11-18] MEDS: HEPARIN SODIUM - SQ 10,000 UNITS/ML VIAL SQ SCH ×2 (16:18→22:15)
[2016-11-18] MEDS: SODIUM CHLOR 0.9% 1000 ML INJ 1,000 ML IV SCH (16:19)
[2016-11-18] MEDS: VANCOMYCIN INJ 1,000 MG in SODIUM CHLOR 0.9% 250 ML INJ 250 ML IV SCH (18:04)
[2016-11-18 20:03] VITALS: BP 113/67; PULSE 62; RESP 18; TEMP 98.7; O2SAT 100
[2016-11-18] MEDS: SODIUM CHLORIDE 0.9% FLUSH 10 ML FLUSH IV FLUSH SCH (21:00)
[2016-11-18] MEDS ORDERED: traZODone HCL 50 MG TAB PO ONE (21:00)
[2016-11-18] MEDS: DOCUSATE SODIUM 50 MG/SENNA 8.6 MG TAB PO SCH (22:14)
[2016-11-19] VITALS (9 sets, daily range): BP systolic 99–139; BP diastolic 55–68; PULSE 59–88; RESP 16–18; TEMP 96.7–97.8; O2SAT 95–99
[2016-11-19] MEDS: SODIUM CHLOR 0.9% 1000 ML INJ 1,000 ML IV SCH ×3 (00:11→18:03)
[2016-11-19] MEDS: VANCOMYCIN INJ 1,000 MG in SODIUM CHLOR 0.9% 250 ML INJ 250 ML IV SCH ×3 (04:00→16:20)
[2016-11-19] MEDS: PIPERACIL-TAZO 4.5 GM PREMIX 100 ML IV SCH ×5 (04:44→20:39)
[2016-11-19] MEDS: ONDANSETRON HCL 4 MG/2 ML VIAL IV PUSH PRN ×2 (05:51→23:05)
--- NOTE | 2016-11-19 07:11 | PD.ORT.PN ---
Subjective Subjective Remarks Resting comfortably. Right arm in sugar tong splint (Adelso Day Jr.) Objective Vitals Vital Signs Date Time Temp Pulse Resp B/P Pulse Ox O2 Delivery O2 Flow Rate FiO2 11/19/16 00:55 95 21 11/19/16 00:15 97.8 61 18 114/62 98 11/18/16 20:03 98.7 62 18 113/67 100 11/18/16 19:06 Room Air 11/18/16 16:00 99.2 63 18 131/58 100 11/18/16 14:25 96.0 60 18 116/66 100 11/18/16 13:22 Room Air I/O 11/18/16 11/18/16 11/18/16 11/19/16 11/19/16 11/19/16 07:00 15:00 23:00 07:00 15:00 23:00 Intake Total 1061 ml 828 ml Balance 1061 ml 828 ml Intake Oral 480 ml 0 ml IV Total 581 ml 828 ml # Voids 4 3 # Bowel Movements 0 0 (Adelso Day Jr.) Objective Remarks Right upper extremity: No pain with shoulder range of motion. Sugar tong splint intact. Intact sensation over the radial ulnar median nerve distributions with good capillary refills (Adelso Day Jr.) Assessment & Plan Assessment and Plan Right radial shaft fracture Surgery today with Dr. Reina and hand surgery to be performed on left hand this afternoon after orthopedic case Nothing by mouth Sign consents Plan for discharge back to [facility] after surgery (Adelso Day Jr.) Assessment and Plan Postoperative day #0 status post ORIF right radius. Patient is status post right tibia intramedullary nail on 11/08/[address] Matthew. Toe-touch weightbearing right leg Nonweightbearing right arm Left hand fracture care per hand surgeon Dr. Koch (Mark Reina MD) Adelso Day Jr. Nov 19, 2016 07:11 Mark Reina MD Nov 19, 2016 15:29
[2016-11-19] MEDS: HEPARIN SODIUM - SQ 10,000 UNITS/ML VIAL SQ SCH ×3 (07:18→23:04)
[2016-11-19] MEDS: DOCUSATE SODIUM 50 MG/SENNA 8.6 MG TAB PO SCH ×2 (07:18→20:39)
[2016-11-19 07:45] LABS: AUTOMATED NEUTROPHIL # 12.3 TH/MM3 (1.8-7.7); BASOPHIL # 0.1 TH/MM3 (0-0.2); BASOPHIL % 0.3 % (0.0-2.0); EOSINOPHIL # 0.3 TH/MM3 (0-0.4); EOSINOPHIL % 1.8 % (0.0-4.0); HEMATOCRIT 37.1 % (35.0-46.0); HEMO FLAGS DIFF FINAL; LYMPH % 14.1 % (9.0-44.0); LYMPHOCYTE # 2.3 TH/MM3 (1.0-4.8); MEAN CELL VOLUME 90.5 FL (80.0-100.0); MEAN CORPUSCULAR HEMOGLOBIN 29.2 PG (27.0-34.0); MEAN CORPUSCULAR HGB CONC 32.2 % (32.0-36.0); NEUT % 74.8 % (16.0-70.0); PLATELET COUNT 439 TH/MM3 (150-450); RED CELL DISTRIBUTION WIDTH 14.9 % (11.6-17.2); WHITE BLOOD COUNT 16.4 TH/MM3 (4.0-11.0)
[2016-11-19] MEDS ORDERED: METOPROLOL TARTRATE 25 MG TAB PO PRN (08:00)
[2016-11-19] MEDS ORDERED: LACTATED RINGER'S 1000 ML IV PRN (08:00)
[2016-11-19] MEDS ORDERED: SODIUM CHLORID 0.9% 500 ML IV PRN (08:00)
[2016-11-19] MEDS ORDERED: CHLORHEXIDINE GLUCONATE 2 % 1 PACK (2 CLOTHS) TOPICAL PRN (08:00)
[2016-11-19] MEDS ORDERED: POVIDONE IODINE 5% (ANTISEPSIS KIT) 4 APPLICATIONS EACH NARE PRN (08:00)
[2016-11-19] MEDS ORDERED: INSULIN HUMAN REGULAR 1,000 UNITS/10 ML VIAL SQ PRN (08:00)
[2016-11-19 08:38] LABS: ALT (GPT) 56 U/L (10-53); ANION GAP 8 MEQ/L (5-15); AST (GOT) 30 U/L (15-37); BICARBONATE 24.2 MEQ/L (21.0-32.0); BLOOD UREA NITROGEN 12 MG/DL (7-18); CHLORIDE 104 MEQ/L (98-107); GLOMERULAR FILTRATION RATE 113 ML/MIN (>89); POTASSIUM 4.2 MEQ/L (3.5-5.1); SODIUM (NA) 136 MEQ/L (136-145)
[2016-11-19 08:40] LABS: ALKALINE PHOSPHATASE 80 U/L (45-117); TOTAL BILIRUBIN ADULT 0.8 MG/DL (0.2-1.0)
[2016-11-19] MEDS: SODIUM CHLORIDE 0.9% FLUSH 10 ML FLUSH IV FLUSH SCH ×2 (08:52→20:39)
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
[2016-11-19] MEDS ORDERED: ONDANSETRON HCL 4 MG/2 ML VIAL IV PUSH ONE (12:00)
[2016-11-19] MEDS ORDERED: PHENYLEPH/NS 1000 MCG/10 ML SYR IV ONE (12:00)
[2016-11-19] MEDS ORDERED: PROPOFOL 200 MG/20 ML AMP IV ONE (12:00)
[2016-11-19] MEDS ORDERED: LACTATED RINGER'S 1000 ML INJ 1,000 ML IV ONE (12:00)
[2016-11-19] MEDS ORDERED: BISACODYL 10 MG SUPP RECTAL PRN (13:00)
[2016-11-19] MEDS ORDERED: SENNOSIDES 8.6 MG TAB PO PRN (13:00)
[2016-11-19] MEDS ORDERED: METHOCARBAMOL 500 MG TAB PO PRN (13:00)
[2016-11-19] MEDS ORDERED: [UNRECOGNIZED DRUG - OTHER] PO SCH (13:00)
[2016-11-19] MEDS ORDERED: LACTULOSE SYRUP 20 GM/30 ML CUP PO PRN (13:00)
[2016-11-19] MEDS ORDERED: POLY17S PO (13:20)
[2016-11-19] MEDS ORDERED: LACT10SO PO (13:20)
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
[2016-11-19] MEDS: POLYETHYLENE GLYCOL 17 GM PKG PO SCH (14:00)
--- NOTE | 2016-11-19 14:30 | EKG ---
Date Performed: 11/19/2016 Time Performed: 10:51:34 PTAGE: 26 years EKG: Sinus rhythm Nonspecific T wave changes ABNORMAL ECG NO PREVIOUS TRACING DOCTOR: Connor Sanders Interpretating Date/Time 11/19/2016 14:29:40
[2016-11-19] MEDS ORDERED: GENTAMICIN SULFATE 80 MG/2 ML VIAL IRRIGATION ONE (14:40)
--- NOTE | 2016-11-19 15:26 | PD.OP ---
cc: Mark Guzmán MD Operative Report Date of Surgery: Nov 19, 2016 Preoperative Diagnosis: Displaced right radial shaft fracture Postoperative Diagnosis: Procedure: Open reduction and fixation right radius shaft fracture Anesthesia: Gen. Surgeon: Mark Guzmán Auto Painter(s): Betito Day PA-C The surgical procedure was assisted by my physician permit review assistant. My P.A. presence was necessary throughout this case for the manipulation and positioning of the surgical extremity. My P.A. was assisting me throughout the duration of this procedure. The skill set of a physician permit review assistant was medically necessary to complete this procedure. During the surgical case the surgical first assistant was working at the back table and the physician permit review assistant was directly assisting me. Operation and Findings: Patient was seen and examined preoperatively. She was found to have a displaced right radial shaft fracture as well as a left first metacarpal fracture. Patient was found to have displaced right radius shaft fracture. Informed consent was obtained and operative site was marked. Patient was brought to operating room and given IV sedation and general anesthesia. Timeout procedure was performed. Operative extremity was prepped and draped with alcohol followed by Hibiclens and draped in usual sterile fashion. IV antibiotics were administered prior to incision. Procedure began with a 5 inch incision over the volar aspect of the radius. Incision was centered over the fracture site. A standard volar approach was utilized. The interval between the radial artery and superficial radial nerve was identified. Neurovascular structures were protected. Soft tissue was elevated off the bone. Fracture site was visualized. Fracture fragments were carefully reduced. Each fracture fragment keyed in anatomic alignment. K wires were used to hold provisional fixation. A ITS plate was contoured to fit the radius. Plate was provisionally held with K wires. 3.5 cortical screws were used to compress plate to bone. Multiple screws were placed in each side of fracture. K wires were removed. Final fluoroscopy revealed excellent of fracture with well-placed hardware. Sterile dressings were applied with Xeroform 4 x 4 soft roll and Dhruv wrap. Patient was awakened and transferred to recovery room in stable condition. Forearm compartments were soft and compressible. Mark Guzmán MD Nov 19, 2016 15:26
[2016-11-19] MEDS ORDERED: MORPHINE SULFATE 4 MG/ML INJ IV PUSH PRN (15:30)
--- NOTE | 2016-11-19 16:01 | RADRPT ---
EXAM DATE/TIME: 11/19/2016 15:08 [place] COMPARISON: No previous studies available for comparison. INDICATIONS : ORIF Right radius. MEDICAL HISTORY : None. SURGICAL HISTORY : None. ENCOUNTER: Initial ACUITY: 1 day PAIN SCORE: Non-responsive. LOCATION: Right radius/forearm FINDINGS: Anatomic alignment following open reduction internal fixation of distal radius fracture. CONCLUSION: Anatomic alignment. Benja George MD FACR on November 19, 2016 at 15:54 Board Certified Radiologist. This report was verified electronically.
[2016-11-19] MEDS ORDERED: BACITRACIN TOP OINT 15 GM TUBE TOPICAL ONE (16:53)
[2016-11-19] MEDS ORDERED: BUPIVACAINE HCL PF 0.25% 30 ML VIAL INFIL ONE (17:00)
--- NOTE | 2016-11-19 17:32 | PD.WCN.NOT ---
Wound Consult Description: Attempted to see patient at 16:20 for L hip wound known to wound care on previous admission, patient out of room in surgery. Spoke with LAURI Naylor about applying optifoam gentle AG over wound bed and securing with bordered gauze for moderate to heavy draining infected wound. Cyndy CARREON will apply dressing after patient returns from surgery. Optifoam Ag can be left in place for 3 days or changed PRN if saturated or dislodged. Also discussed with RN if Optifoam gentle AG does not work and wound has heavy drainage may use Maxorb AG held in place with ABD pad and tape and change every 2 days or PRN if saturated or dislodged. Will follow up with Patient if not discharged on Tuesday. Communicated with: LAURI Naylor Ostomy Date of Surgery: Nov 19, 2016 [facility] Nov 19, 2016 17:32
--- NOTE | 2016-11-19 17:52 | PD.OP ---
Operative Report Preoperative Diagnosis: (1) Traumatic closed displaced fracture of base of metacarpal bone of left thumb Postoperative Diagnosis: (1) Traumatic closed displaced fracture of base of metacarpal bone of left thumb Procedure: closed reduction and internal fixation with K-wires left thumb metacarpal base Anesthesia: general Surgeon: Shayne Leary Poultry Hanger(s): none Operation and Findings: displaced epibasal fracture thumb metacarpal left hand Shayne Leary MD Nov 19, 2016 17:52
--- NOTE | 2016-11-19 17:59 | HHI.PR ---
Subjective Remarks patient resting comfortably s/p closed reduction and internal fixation with k wires left thumb metacarpal Objective left hand: intact splint intact distal circulation and sensation Result Diagram: 11/19/16 0715 11/19/16 0715 Assessment and Plan Assessment and Plan 26 year old female s/p closed reduction and internal fixation left thumb metacarpal. Plan: continue with splint limb elevation watch for distal circulation non weight bearing left hand hand surgery will follow. Shayne Leary MD Nov 19, 2016 17:59
[2016-11-19] MEDS ORDERED: DO NOT ADM ANY ANTICOAGULANT DRUGS PRN (19:45)
[2016-11-19] MEDS: LACTOBACILLUS ACIDOPHILUS TAB PO SCH (20:38)
[2016-11-19] MEDS: MAGNESIUM HYDROXIDE SUSP 30 ML CUP PO SCH (20:38)
[2016-11-19] MEDS: FAMOTIDINE 20 MG TAB PO SCH (20:39)
[2016-11-19] MEDS: hydrOXYzine PAMOATE 25 MG CAP PO PRN (23:04)
[2016-11-19] MEDS: traZODone HCL 50 MG TAB PO SCH (23:04)
[2016-11-20] MEDS: PIPERACIL-TAZO 4.5 GM PREMIX 100 ML IV SCH ×4 (03:39→20:57)
[2016-11-20] MEDS: VANCOMYCIN INJ 1,000 MG in SODIUM CHLOR 0.9% 250 ML INJ 250 ML IV SCH ×2 (03:39→16:00)
[2016-11-20] MEDS ORDERED: PHARMACY ORDERED LAB ONE ×2 (03:45→15:45)
[2016-11-20 04:05] VITALS: BP 117/58; PULSE 77; RESP 18; TEMP 97.1; O2SAT 97
[2016-11-20] MEDS: hydrOXYzine PAMOATE 25 MG CAP PO PRN ×2 (05:37→21:16)
[2016-11-20] MEDS: SODIUM CHLOR 0.9% 1000 ML INJ 1,000 ML IV SCH ×2 (06:11→16:11)
[2016-11-20 08:00] VITALS: BP 149/69; PULSE 73; RESP 18; TEMP 96.8; O2SAT 100
[2016-11-20] MEDS: FLUoxetine HCL 10 MG CAP PO SCH (08:18)
[2016-11-20] MEDS: DOCUSATE SODIUM 50 MG/SENNA 8.6 MG TAB PO SCH ×2 (08:18→21:00)
[2016-11-20] MEDS: HEPARIN SODIUM - SQ 10,000 UNITS/ML VIAL SQ SCH ×2 (08:19→15:59)
[2016-11-20] MEDS: POLYETHYLENE GLYCOL 17 GM PKG PO SCH (08:19)
[2016-11-20] MEDS: SODIUM CHLORIDE 0.9% FLUSH 10 ML FLUSH IV FLUSH SCH ×2 (08:19→20:56)
[2016-11-20] MEDS: LACTOBACILLUS ACIDOPHILUS TAB PO SCH ×2 (08:21→20:58)
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
[2016-11-20 09:37] LABS: AUTOMATED NEUTROPHIL # 18.3 TH/MM3 (1.8-7.7); BASOPHIL # 0.2 TH/MM3 (0-0.2); BASOPHIL % 0.7 % (0.0-2.0); EOSINOPHIL # 0.2 TH/MM3 (0-0.4); EOSINOPHIL % 0.8 % (0.0-4.0); HEMATOCRIT 36.1 % (35.0-46.0); LYMPH % 13.6 % (9.0-44.0); LYMPHOCYTE # 3.1 TH/MM3 (1.0-4.8); MEAN CELL VOLUME 89.1 FL (80.0-100.0); MEAN CORPUSCULAR HEMOGLOBIN 29.7 PG (27.0-34.0); MEAN CORPUSCULAR HGB CONC 33.4 % (32.0-36.0); MONO % 5.8 % (0.0-8.0); NEUT % 79.1 % (16.0-70.0); PLATELET COUNT 442 TH/MM3 (150-450); RED BLOOD COUNT 4.05 MIL/MM3 (4.00-5.30); RED CELL DISTRIBUTION WIDTH 15.3 % (11.6-17.2); WHITE BLOOD COUNT 23.1 TH/MM3 (4.0-11.0)
[2016-11-20 09:42] LABS: HEMO FLAGS AUTO DIFF
[2016-11-20 09:50] LABS: ALKALINE PHOSPHATASE 81 U/L (45-117); ALT (GPT) 42 U/L (10-53); ANION GAP 11 MEQ/L (5-15); AST (GOT) 34 U/L (15-37); BICARBONATE 22.5 MEQ/L (21.0-32.0); BLOOD UREA NITROGEN 9 MG/DL (7-18); CHLORIDE 106 MEQ/L (98-107); CREATINE KINASE 162 U/L (26-192); GLOMERULAR FILTRATION RATE 118 ML/MIN (>89); MAGNESIUM 2.2 MG/DL (1.5-2.5); POTASSIUM 5.5 MEQ/L (3.5-5.1); SODIUM (NA) 139 MEQ/L (136-145); TOTAL BILIRUBIN ADULT 0.7 MG/DL (0.2-1.0)
[2016-11-20] MEDS ORDERED: SODIUM POLYSTYRENE SULFONATE SUSP 15 GM/60 ML CUP PO ONE (10:30)
[2016-11-20 11:49] LABS: SCAN/DIFF AUTO DIFF CONFIRMED
[2016-11-20 12:00] VITALS: BP 152/95; PULSE 85; RESP 18; TEMP 97.4; O2SAT 99
[2016-11-20] MEDS ORDERED: HYDR1CAP30 PO (12:50)
[2016-11-20] MEDS ORDERED: OXYC-392 PO (12:50)
[2016-11-20] MEDS ORDERED: LEVA750T9 PO (12:50)
--- NOTE | 2016-11-20 13:32 | PD.ORT.PN ---
Subjective Subjective Remarks Patient comfortable. Pain controlled. Sitting on commode. Family at bedside. Objective Vitals Vital Signs Date Time Temp Pulse Resp B/P Pulse Ox O2 Delivery O2 Flow Rate FiO2 11/20/16 12:00 97.4 85 18 152/95 99 11/20/16 08:00 96.8 73 18 149/69 100 11/20/16 04:05 97.1 77 18 117/58 97 11/19/16 23:00 96.7 88 18 139/68 98 11/19/16 19:16 96.7 82 18 122/59 99 11/19/16 18:48 Room Air 11/19/16 18:35 Room Air 11/19/16 18:00 76 18 120/86 100 Room Air 11/19/16 17:46 96 21 11/19/16 17:45 81 17 146/66 100 Room Air 11/19/16 17:29 97.7 105 21 134/79 100 Nasal Cannula 4 11/19/16 14:21 96 I/O 11/19/16 11/19/16 11/19/16 11/20/16 11/20/16 11/20/16 07:00 15:00 23:00 07:00 15:00 23:00 Intake Total 828 ml 0 ml 1648 ml 708 ml Output Total 500 ml Balance 828 ml 0 ml 1148 ml 708 ml Intake Oral 0 ml 0 ml 420 ml 480 ml IV Total 828 ml 428 ml 228 ml Other 800 ml Output Urine Total 450 ml Estimated Blood Loss 50 ml # Voids 3 1 3 2 # Bowel Movements 0 0 0 0 Result Diagram: 11/20/16 0900 11/20/16 0900 Objective Remarks Right upper extremity: No pain with shoulder range of motion. Sugar tong splint intact. Intact sensation over the radial ulnar median nerve distributions with good capillary refills Right lower extremity: Distally motor, neuro and sensory intact. Dressing C/D/I. Assessment & Plan Assessment and Plan Postoperative day #1 status post ORIF right radius. Patient is status post right tibia intramedullary nail on 11/08/[address] Matthew. Toe-touch weightbearing right leg Nonweightbearing right arm Left hand fracture care per hand surgeon Dr. Koch Remove soledad/sutures on Tuesday to [facility]. Dr. Matthew spoke with patient. Mark Montes De Oca Nov 20, 2016 13:32
[2016-11-20 16:00] VITALS: BP 151/77; PULSE 81; RESP 18; TEMP 96.3; O2SAT 97
[2016-11-20 20:15] VITALS: PULSE 78
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
[2016-11-20 20:45] VITALS: BP 135/69; PULSE 71; RESP 16; TEMP 97.9; O2SAT 100
[2016-11-20] MEDS: MAGNESIUM HYDROXIDE SUSP 30 ML CUP PO SCH (20:55)
[2016-11-20] MEDS: traZODone HCL 50 MG TAB PO SCH (20:57)
[2016-11-20] MEDS: FAMOTIDINE 20 MG TAB PO SCH (20:57)
[2016-11-20] MEDS: AMOXICILLIN/CLAVULANATE K 875 MG TAB PO SCH (20:58)
[2016-11-21] VITALS (7 sets, daily range): BP systolic 101–148; BP diastolic 48–90; PULSE 73–101; RESP 16–19; TEMP 97.1–98.7; O2SAT 95–100
[2016-11-21] MEDS: HEPARIN SODIUM - SQ 10,000 UNITS/ML VIAL SQ SCH ×2 (00:38→08:58)
[2016-11-21] MEDS: SODIUM CHLOR 0.9% 1000 ML INJ 1,000 ML IV SCH (00:42)
[2016-11-21] MEDS: PIPERACIL-TAZO 4.5 GM PREMIX 100 ML IV SCH ×2 (04:40→08:58)
[2016-11-21 07:32] LABS: AUTOMATED NEUTROPHIL # 8.9 TH/MM3 (1.8-7.7); BASOPHIL # 0.1 TH/MM3 (0-0.2); BASOPHIL % 0.8 % (0.0-2.0); EOSINOPHIL # 0.5 TH/MM3 (0-0.4); EOSINOPHIL % 3.8 % (0.0-4.0); HEMATOCRIT 33.9 % (35.0-46.0); HEMO FLAGS DIFF FINAL; LYMPH % 19.2 % (9.0-44.0); LYMPHOCYTE # 2.6 TH/MM3 (1.0-4.8); MEAN CORPUSCULAR HEMOGLOBIN 30.1 PG (27.0-34.0); MEAN CORPUSCULAR HGB CONC 33.4 % (32.0-36.0); MONO % 10.2 % (0.0-8.0); PLATELET COUNT 517 TH/MM3 (150-450); RED BLOOD COUNT 3.76 MIL/MM3 (4.00-5.30); WHITE BLOOD COUNT 13.5 TH/MM3 (4.0-11.0)
[2016-11-21 08:01] LABS: BICARBONATE 29.3 MEQ/L (21.0-32.0); MAGNESIUM 2.1 MG/DL (1.5-2.5); POTASSIUM 3.8 MEQ/L (3.5-5.1)
--- NOTE | 2016-11-21 08:07 | PD.ORT.PN ---
Subjective Subjective Remarks Patient comfortable. Pain controlled. Family at bedside. Objective Vitals Vital Signs Date Time Temp Pulse Resp B/P Pulse Ox O2 Delivery O2 Flow Rate FiO2 11/21/16 05:40 18 11/21/16 04:45 97.4 76 16 101/48 96 11/21/16 04:00 76 11/21/16 02:15 Room Air 11/21/16 00:10 98.7 73 16 129/64 100 11/21/16 00:00 77 11/20/16 20:45 97.9 71 16 135/69 100 11/20/16 20:15 78 11/20/16 16:00 96.3 81 18 151/77 97 11/20/16 12:00 97.4 85 18 152/95 99 I/O 11/20/16 11/20/16 11/20/16 11/21/16 11/21/16 11/21/16 07:00 15:00 23:00 07:00 15:00 23:00 Intake Total 708 ml 720 ml 480 ml 240 ml Balance 708 ml 720 ml 480 ml 240 ml Intake Oral 480 ml 720 ml 480 ml 240 ml IV Total 228 ml # Voids 2 3 4 2 # Bowel Movements 0 1 0 0 Result Diagram: 11/21/16 0650 11/20/16 0900 Objective Remarks Right upper extremity: No pain with shoulder range of motion. Sugar tong splint intact. Intact sensation over the radial ulnar median nerve distributions with good capillary refills Right lower extremity: Distally motor, neuro and sensory intact. Dressing C/D/I. Assessment & Plan Assessment and Plan Postoperative day #2 status post ORIF right radius. Patient is status post right tibia intramedullary nail on 11/08/[address] Matthew. Toe-touch weightbearing right leg Nonweightbearing right arm Left hand fracture care per hand surgeon Dr. Lunsford. Remove soledad/sutures today to E. Ok to transfer to [facility] Mark Montes De Oca Nov 21, 2016 08:07
[2016-11-21] MEDS: LACTOBACILLUS ACIDOPHILUS TAB PO SCH (08:58)
[2016-11-21] MEDS: FLUoxetine HCL 10 MG CAP PO SCH (08:58)
[2016-11-21] MEDS: POLYETHYLENE GLYCOL 17 GM PKG PO SCH (08:58)
[2016-11-21] MEDS: AMOXICILLIN/CLAVULANATE K 875 MG TAB PO SCH (08:58)
[2016-11-21] MEDS: SODIUM CHLORIDE 0.9% FLUSH 10 ML FLUSH IV FLUSH SCH (08:59)
[2016-11-21] MEDS: DOCUSATE SODIUM 50 MG/SENNA 8.6 MG TAB PO SCH (08:59)
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
== END 2016-11-21 12:27 | DRG 510 ==
LOC: N06A 14:06
PROVIDERS: ADMIT Internal Medicine; ATTEND Internal Medicine
PROC: 0PSH04Z Reposition Right Radius with Internal Fixation Device, Open Approach (ICD-10-PCS; principal; 2016-11-19 14:01)
PROC: 0PSQ34Z Reposition Left Metacarpal with Internal Fixation Device, Percutaneous Approach (ICD-10-PCS; 2016-11-19 14:01)
DX: S52.301A Unspecified fracture of shaft of right radius, initial encounter for closed fracture (principal); J18.9 Pneumonia, unspecified organism; E87.5 Hyperkalemia; T81.4XXA Infection following a procedure, initial encounter; B95.8 Unspecified staphylococcus as the cause of diseases classified elsewhere; S62.232A Other displaced fracture of base of first metacarpal bone, left hand, initial encounter for closed fracture; V49.9XXA Car occupant (driver) (passenger) injured in unspecified traffic accident, initial encounter; K59.00 Constipation, unspecified; R79.89 Other specified abnormal findings of blood chemistry; R74.8 Abnormal levels of other serum enzymes
CPT/HCPCS: 73090; 76000; 76937; 80048; 80053; 82550; 83690; 83735; 84100; 85025; 93005; C1713; J1580; J1644; J2270; J2370; J2405; J2543; J3370; J7030; J7050; J7120; L3808; Q0177

== ENCOUNTER 2016-12-02 17:30 | Inpatient (IN) | payer OTHER, BC ==
[~2016-12-02 17:30] MED LIST changes: +BEDSIDE COMMODE1 MI1; +HYDR1CAP30 PO; +LACT10SO PO; +NEOSTIGMINE 3 MG/3 ML SYR IV ONE; +NORMOSOL R INJ 1,000 ML IV ONE; +ONDANSETRON HCL 4 MG/2 ML VIAL IV PUSH ONE; +OXYC-392 PO; +PHENYLEPH/NS 1000 MCG/10 ML SYR IV ONE; +POLY17S PO; +PROPOFOL 200 MG/20 ML AMP IV ONE; +[UNRECOGNIZED DRUG - OTHER]; +ePHEDrine/NS 25 MG/5 ML SYR IV ONE
[2016-12-02] MEDS ORDERED: CIPROFLOXACIN 500 MG TAB ONE (19:25)
[2016-12-02] MEDS ORDERED: LIDOCAINE 1%/EPINEPHrine 1:200,000 PF SOLN 30 ML VIAL INFIL ONE (19:30)
[2016-12-02] MEDS ORDERED: FLUCONAZOLE 400 MG PREMIX BAG 200 ML ONE (19:34)
[2016-12-02] MEDS: PANTOPRAZOLE SODIUM 40 MG VIAL IVP SCH (22:00)
[2016-12-02] MEDS: SODIUM CHLOR 0.9% 1000 ML INJ 1,000 ML IV SCH (22:13)
[2016-12-02] MEDS ORDERED: MISCELLANEOUS NURSING INFORMATION XX SCH (22:15)
[2016-12-02] MEDS ORDERED: SODIUM CHLORIDE 0.9% FLUSH 10 ML FLUSH IV FLUSH PRN (22:15)
[2016-12-02] MEDS ORDERED: NALOXONE HCL 0.4 MG/ML AMP IV PRN (22:15)
[2016-12-02] MEDS ORDERED: ENALAPRILAT 1.25 MG/ML VIAL IV PRN (22:15)
[2016-12-02] MEDS ORDERED: ONDANSETRON HCL 4 MG/2 ML VIAL IV PRN (22:15)
[2016-12-02] MEDS ORDERED: diphenhydrAMINE HCL 50 MG/ML VIAL IV PRN (22:15)
[2016-12-02] MEDS: PCA - TOTAL MG MORPHINE DELIVERED PER SHIFT SCH (22:15)
[2016-12-02] MEDS: DOCUSATE SODIUM 100 MG CAP PO SCH (22:15)
[2016-12-02] MEDS ORDERED: CHLORHEXIDINE GLUCONATE 2 % 1 PACK (2 CLOTHS) TOP PRN (22:15)
[2016-12-02] MEDS ORDERED: ACETAMINOPHEN/HYDROcodone 325 MG/5 MG TAB PO PRN ×2 (22:15)
[2016-12-02] MEDS ORDERED: MIDAZOLAM HCL 2 MG/2 ML VIAL ONE (22:18)
[2016-12-02] MEDS ORDERED: fentaNYL CITRATE 250 MCG/5 ML AMP ONE ×2 (22:18→22:19)
--- NOTE | 2016-12-02 22:20 | HHI.PR ---
Immediate Post Op Note Procedure Date: Dec 02, 2016 Pre Op Diagnosis: perforation of bowel Post Op Diagnosis: same Surgeon: Chad Collins MD Air Traffic Instructor(s): see or sheet Procedure: dx lap, ex lap, resection of small bowel with primary anastomosis, JOSE DE JESUS >60 minutes, repair of colon Findings: succus, perforated inflammed phlegmon, RLQ, adhesions Complications: none Specimen(s) removed: small bowel Estimated blood loss: 40cc Anesthesia: General Drains: MAKAYLA Patient to: PACU Patient Condition: Good Chad Collins MD Dec 02, 2016 22:20
[2016-12-02] MEDS: MORPHINE SULFATE 30 MG/30 ML PCA IV SCH (22:36)
[2016-12-02] MEDS ORDERED: DO NOT ADM ANY ANTICOAGULANT DRUGS PRN (22:45)
[2016-12-02 23:30] VITALS: BP 154/107; PULSE 98; RESP 23; TEMP 98.6; O2SAT 98
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
[2016-12-03] VITALS (10 sets, daily range): BP systolic 144–171; BP diastolic 86–103; PULSE 81–102; RESP 16–23; TEMP 96.4–98.8; O2SAT 98–100
[2016-12-03] MEDS: PIPERACIL-TAZO 3.375 GM PREMIX 50 ML IV SCH ×2 (00:38→09:41)
[2016-12-03] MEDS ORDERED: LABETALOL HCL 100 MG/20 ML VIAL IV PUSH ONE (00:45)
[2016-12-03] MEDS ORDERED: HYDROmorphone HCL PF 1 MG/ML VIAL IV PUSH ONE (00:45)
[2016-12-03] MEDS: MORPHINE SULFATE 30 MG/30 ML PCA IV SCH ×2 (01:21→01:24)
[2016-12-03 01:23] LABS: AUTOMATED NEUTROPHIL # 18.5 TH/MM3 (1.8-7.7); BASOPHIL % 0.1 % (0.0-2.0); HEMATOCRIT 40.3 % (35.0-46.0); HEMO FLAGS DIFF FINAL; LYMPH % 2.2 % (9.0-44.0); LYMPHOCYTE # 0.4 TH/MM3 (1.0-4.8); MEAN CELL VOLUME 90.6 FL (80.0-100.0); NEUT % 94.7 % (16.0-70.0); PLATELET COUNT 356 TH/MM3 (150-450); RED BLOOD COUNT 4.45 MIL/MM3 (4.00-5.30); RED CELL DISTRIBUTION WIDTH 14.9 % (11.6-17.2); WHITE BLOOD COUNT 19.5 TH/MM3 (4.0-11.0)
[2016-12-03 01:55] LABS: BICARBONATE 24.9 MEQ/L (21.0-32.0); CALCIUM-PROTEIN CORRECTED 8.2 MG/DL (8.5-10.1); MAGNESIUM 1.4 MG/DL (1.5-2.5); POTASSIUM 4.1 MEQ/L (3.5-5.1); TOTAL BILIRUBIN ADULT 0.5 MG/DL (0.2-1.0)
[2016-12-03] MEDS: CHLORHEXIDINE GLUCONATE 2 % 1 PACK (2 CLOTHS) TOP SCH (04:00)
[2016-12-03] MEDS: SODIUM CHLOR 0.9% 1000 ML INJ 1,000 ML IV SCH ×3 (04:22→16:57)
[2016-12-03] MEDS: PCA - TOTAL MG MORPHINE DELIVERED PER SHIFT SCH (06:00)
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
--- NOTE | 2016-12-03 07:53 | PD.ORT.PN ---
Subjective Subjective Remarks s/p right tibial IMN by Dr Matthew s/p ORIF right radial shaft by Dr Reina s/p pinning left thumb by Dr Lunsford s/p perforated bowel -doing well. reports pain from bowel surgery. states leg and arm are doing well with minimal complaints. Objective Vitals Vital Signs Date Time Temp Pulse Resp B/P Pulse Ox O2 Delivery O2 Flow Rate FiO2 12/03/16 06:00 102 12/03/16 06:00 18 12/03/16 04:00 102 12/03/16 04:00 98.8 102 18 152/102 98 12/03/16 02:25 18 12/03/16 02:25 18 12/03/16 02:00 90 12/03/16 00:00 98.8 102 23 171/103 99 12/03/16 00:00 102 12/02/16 23:30 98 12/02/16 23:30 Nasal Cannula 2.00 12/02/16 23:30 98.6 98 23 154/107 98 12/02/16 23:15 98 19 156/76 100 Nasal Cannula 3 12/02/16 23:00 94 19 160/76 100 Nasal Cannula 3 12/02/16 22:45 92 20 160/78 100 Nasal Cannula 3 12/02/16 22:36 14 12/02/16 22:30 90 20 158/80 100 Nasal Cannula 3 12/02/16 22:15 98.8 89 18 153/83 100 Nasal Cannula 3 I/O 12/02/16 12/02/16 12/02/16 12/03/16 12/03/16 12/03/16 07:00 15:00 23:00 07:00 15:00 23:00 Intake Total 2300 ml 980 ml Output Total 500 ml 310 ml Balance 1800 ml 670 ml Intake Oral 30 ml IV Total 950 ml Other 2300 ml Output Urine Total 450 ml 300 ml Drainage Total 10 ml Estimated Blood Loss 50 ml Result Diagram: 12/03/1610212/03/16102 Objective Remarks RUE: Incision clean and dry. intact. no drainage. sensation intact to median/ ulnar nerve. full radial nerve function. RLE: incisions clean and dry. good dorsiflexion. neg annika Assessment & Plan Assessment and Plan 1) Right Radial Shaft Fx s/p ORIF - POD 14 2) Right Tibial IMN by Dr Matthew (11/08/16) 3) Left Base of 1st fx s/p pinning by Dr Lunsford -DC sutures right arm. redress with primapore -NWB RLE/RUE -stable from ortho standpoint -ortho cleared for DC back to rehab once medical issues resolved. -f/u with [facility] or [facility] in 1 month Nadeem Locke Dec 03, 2016 07:53
[2016-12-03] MEDS: DOCUSATE SODIUM 100 MG CAP PO SCH ×2 (09:41→19:49)
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
[2016-12-03] MEDS ORDERED: NALOXONE HCL 0.4 MG/ML AMP IV PRN (11:45)
[2016-12-03] MEDS: HYDROmorphone HCL PCA 6 MG/30 ML IV SCH (12:21)
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
[2016-12-03] MEDS: PCA - TOTAL MG DILAUDID DELIVERED PER SHIFT OTHER SCH ×2 (14:42→21:29)
[2016-12-03] MEDS: PIPERACIL-TAZO 4.5 GM PREMIX 100 ML IV SCH ×2 (14:43→22:09)
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
[2016-12-03] MEDS: FLUCONAZOLE 400 MG PREMIX BAG 200 ML IV SCH (19:48)
[2016-12-03] MEDS: PANTOPRAZOLE SODIUM 40 MG VIAL IVP SCH (19:49)
[2016-12-03] MEDS: HEPARIN SODIUM - SQ 10,000 UNITS/ML VIAL SQ SCH (19:49)
[2016-12-04] VITALS (7 sets, daily range): BP systolic 124–174; BP diastolic 76–95; PULSE 71–88; RESP 17–20; TEMP 96–98.4; O2SAT 95–100
[2016-12-04] MEDS: CHLORHEXIDINE GLUCONATE 2 % 1 PACK (2 CLOTHS) TOP SCH (03:45)
[2016-12-04] MEDS: PIPERACIL-TAZO 4.5 GM PREMIX 100 ML IV SCH ×4 (03:47→21:26)
[2016-12-04] MEDS: SODIUM CHLOR 0.9% 1000 ML INJ 1,000 ML IV SCH ×4 (03:48→21:26)
[2016-12-04] MEDS: HEPARIN SODIUM - SQ 10,000 UNITS/ML VIAL SQ SCH ×3 (04:42→21:24)
[2016-12-04] MEDS: PCA - TOTAL MG DILAUDID DELIVERED PER SHIFT OTHER SCH ×3 (06:00→21:35)
[2016-12-04] MEDS: DOCUSATE SODIUM 100 MG CAP PO SCH ×2 (10:35→21:26)
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
[2016-12-04] MEDS ORDERED: oxyCODONE/ACETAMINOPHEN 5 MG/325 MG TAB PO PRN (11:30)
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
[2016-12-04] MEDS: HYDROmorphone HCL PCA 6 MG/30 ML IV SCH (14:45)
[2016-12-04 18:14] LABS: AUTOMATED NEUTROPHIL # 15.5 TH/MM3 (1.8-7.7); BASOPHIL % 0.2 % (0.0-2.0); EOSINOPHIL # 0.2 TH/MM3 (0-0.4); EOSINOPHIL % 1.3 % (0.0-4.0); HEMATOCRIT 32.6 % (35.0-46.0); HEMO FLAGS DIFF FINAL; LYMPH % 9.3 % (9.0-44.0); LYMPHOCYTE # 1.7 TH/MM3 (1.0-4.8); MEAN CELL VOLUME 90.9 FL (80.0-100.0); MEAN CORPUSCULAR HEMOGLOBIN 30.6 PG (27.0-34.0); MEAN CORPUSCULAR HGB CONC 33.6 % (32.0-36.0); MONO % 6.4 % (0.0-8.0); NEUT % 82.8 % (16.0-70.0); PLATELET COUNT 298 TH/MM3 (150-450); RED BLOOD COUNT 3.58 MIL/MM3 (4.00-5.30); RED CELL DISTRIBUTION WIDTH 14.7 % (11.6-17.2); WHITE BLOOD COUNT 18.7 TH/MM3 (4.0-11.0)
[2016-12-04] MEDS: METOCLOPRAMIDE HCL 10 MG/2 ML VIAL IV PUSH SCH ×2 (18:20→21:25)
[2016-12-04 18:26] LABS: ANION GAP 4 MEQ/L (5-15); AST (GOT) 20 U/L (15-37); BICARBONATE 29.7 MEQ/L (21.0-32.0); BLOOD UREA NITROGEN 3 MG/DL (7-18); CHLORIDE 103 MEQ/L (98-107); GLOMERULAR FILTRATION RATE 167 ML/MIN (>89); MAGNESIUM 1.5 MG/DL (1.5-2.5); POTASSIUM 3.7 MEQ/L (3.5-5.1); SODIUM (NA) 137 MEQ/L (136-145)
[2016-12-04 18:32] LABS: ALKALINE PHOSPHATASE 88 U/L (45-117); ALT (GPT) 16 U/L (10-53); TOTAL BILIRUBIN ADULT 0.5 MG/DL (0.2-1.0)
[2016-12-04] MEDS: MAGNESIUM HYDROXIDE SUSP 30 ML CUP PO SCH (21:25)
[2016-12-04] MEDS: PANTOPRAZOLE SODIUM 40 MG VIAL IVP SCH (21:25)
[2016-12-04] MEDS: FLUCONAZOLE 400 MG PREMIX BAG 200 ML IV SCH (21:26)
[2016-12-05] VITALS (7 sets, daily range): BP systolic 104–127; BP diastolic 60–82; PULSE 82–98; RESP 17–20; TEMP 96.8–98.4; O2SAT 98–100
[2016-12-05] MEDS: PIPERACIL-TAZO 4.5 GM PREMIX 100 ML IV SCH ×4 (03:59→21:30)
[2016-12-05] MEDS: HEPARIN SODIUM - SQ 10,000 UNITS/ML VIAL SQ SCH ×3 (03:59→21:29)
[2016-12-05] MEDS: SODIUM CHLOR 0.9% 1000 ML INJ 1,000 ML IV SCH ×3 (04:00→21:28)
[2016-12-05 05:01] LABS: AUTOMATED NEUTROPHIL # 14.5 TH/MM3 (1.8-7.7); BASOPHIL # 0.1 TH/MM3 (0-0.2); BASOPHIL % 0.4 % (0.0-2.0); EOSINOPHIL # 0.3 TH/MM3 (0-0.4); EOSINOPHIL % 1.8 % (0.0-4.0); HEMATOCRIT 30.3 % (35.0-46.0); HEMO FLAGS DIFF FINAL; LYMPH % 9.9 % (9.0-44.0); LYMPHOCYTE # 1.8 TH/MM3 (1.0-4.8); MEAN CORPUSCULAR HEMOGLOBIN 30.2 PG (27.0-34.0); MEAN CORPUSCULAR HGB CONC 33.1 % (32.0-36.0); MONO % 7.2 % (0.0-8.0); NEUT % 80.7 % (16.0-70.0); PLATELET COUNT 265 TH/MM3 (150-450); RED BLOOD COUNT 3.33 MIL/MM3 (4.00-5.30); RED CELL DISTRIBUTION WIDTH 14.7 % (11.6-17.2); WHITE BLOOD COUNT 17.9 TH/MM3 (4.0-11.0)
[2016-12-05] MEDS: METOCLOPRAMIDE HCL 10 MG/2 ML VIAL IV PUSH SCH ×3 (05:18→21:30)
[2016-12-05] MEDS: PCA - TOTAL MG DILAUDID DELIVERED PER SHIFT OTHER SCH ×3 (05:19→21:56)
[2016-12-05 05:20] LABS: ALT (GPT) 13 U/L (10-53); ANION GAP 6 MEQ/L (5-15); AST (GOT) 19 U/L (15-37); BICARBONATE 29.6 MEQ/L (21.0-32.0); BLOOD UREA NITROGEN 2 MG/DL (7-18); CHLORIDE 103 MEQ/L (98-107); GLOMERULAR FILTRATION RATE 181 ML/MIN (>89); MAGNESIUM 1.5 MG/DL (1.5-2.5); POTASSIUM 3.4 MEQ/L (3.5-5.1); SODIUM (NA) 139 MEQ/L (136-145)
[2016-12-05 05:22] LABS: ALKALINE PHOSPHATASE 71 U/L (45-117); TOTAL BILIRUBIN ADULT 0.3 MG/DL (0.2-1.0)
[2016-12-05] MEDS: POTASSIUM CHLOR 20 MEQ PREMIX 100 ML IV SCH ×2 (08:18→11:55)
[2016-12-05] MEDS: DOCUSATE SODIUM 100 MG CAP PO SCH (08:18)
[2016-12-05] MEDS ORDERED: FLUoxetine HCL 10 MG CAP PO ONE (10:30)
[2016-12-05] MEDS ORDERED: POTASSIUM CHLORIDE 10 MEQ CONTROLLED RELEASE TAB PO ONE (14:00)
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
[2016-12-05] MEDS: oxyCODONE/ACETAMINOPHEN 10 MG/325 MG TAB PO PRN ×2 (16:34→21:30)
[2016-12-05] MEDS: FLUCONAZOLE 400 MG PREMIX BAG 200 ML IV SCH (21:29)
[2016-12-05] MEDS: PANTOPRAZOLE SODIUM 40 MG VIAL IVP SCH (21:29)
[2016-12-05] MEDS: MAGNESIUM HYDROXIDE SUSP 30 ML CUP PO SCH (21:29)
[2016-12-05] MEDS: DOCUSATE SODIUM 50 MG/SENNA 8.6 MG TAB PO SCH (21:30)
[2016-12-06] VITALS: BP 112/68; PULSE 96; RESP 17; TEMP 99.1; O2SAT 99
[2016-12-06] MEDS: oxyCODONE/ACETAMINOPHEN 10 MG/325 MG TAB PO PRN (01:33)
[2016-12-06] MEDS: PIPERACIL-TAZO 4.5 GM PREMIX 100 ML IV SCH ×4 (03:31→21:53)
[2016-12-06] MEDS: HEPARIN SODIUM - SQ 10,000 UNITS/ML VIAL SQ SCH ×3 (03:32→21:49)
[2016-12-06] MEDS: SODIUM CHLOR 0.9% 1000 ML INJ 1,000 ML IV SCH ×2 (06:04→10:04)
[2016-12-06] MEDS: METOCLOPRAMIDE HCL 10 MG/2 ML VIAL IV PUSH SCH ×3 (06:04→21:48)
[2016-12-06 06:31] LABS: AUTOMATED NEUTROPHIL # 10.2 TH/MM3 (1.8-7.7); BASOPHIL # 0.1 TH/MM3 (0-0.2); BASOPHIL % 0.5 % (0.0-2.0); EOSINOPHIL # 0.5 TH/MM3 (0-0.4); EOSINOPHIL % 3.2 % (0.0-4.0); HEMATOCRIT 29.7 % (35.0-46.0); HEMO FLAGS DIFF FINAL; LYMPH % 17.2 % (9.0-44.0); LYMPHOCYTE # 2.5 TH/MM3 (1.0-4.8); MEAN CELL VOLUME 91.8 FL (80.0-100.0); MEAN CORPUSCULAR HGB CONC 32.6 % (32.0-36.0); MONO % 8.3 % (0.0-8.0); NEUT % 70.8 % (16.0-70.0); PLATELET COUNT 258 TH/MM3 (150-450); RED BLOOD COUNT 3.24 MIL/MM3 (4.00-5.30); RED CELL DISTRIBUTION WIDTH 14.6 % (11.6-17.2); WHITE BLOOD COUNT 14.5 TH/MM3 (4.0-11.0)
[2016-12-06 06:49] LABS: ANION GAP 8 MEQ/L (5-15); AST (GOT) 15 U/L (15-37); BICARBONATE 27.6 MEQ/L (21.0-32.0); BLOOD UREA NITROGEN 2 MG/DL (7-18); CHLORIDE 104 MEQ/L (98-107); GLOMERULAR FILTRATION RATE 216 ML/MIN (>89); POTASSIUM 3.7 MEQ/L (3.5-5.1); SODIUM (NA) 140 MEQ/L (136-145)
[2016-12-06 06:50] LABS: ALT (GPT) 13 U/L (10-53)
[2016-12-06 06:53] LABS: ALKALINE PHOSPHATASE 65 U/L (45-117); TOTAL BILIRUBIN ADULT 0.4 MG/DL (0.2-1.0)
[2016-12-06 08:00] VITALS: BP 107/69; PULSE 84; RESP 16; TEMP 95.4; O2SAT 100
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
[2016-12-06] MEDS ORDERED: ACETAMINOPHEN/HYDROcodone 325 MG/10 MG TAB PO PRN (09:00)
[2016-12-06] MEDS ORDERED: ACETAMINOPHEN/HYDROcodone 325 MG/5 MG TAB PO PRN (09:00)
[2016-12-06] MEDS: FLUoxetine HCL 10 MG CAP PO SCH (09:57)
[2016-12-06] MEDS: DOCUSATE SODIUM 50 MG/SENNA 8.6 MG TAB PO SCH ×2 (09:57→21:49)
[2016-12-06 12:00] VITALS: BP 106/59; PULSE 89; RESP 17; TEMP 96.3; O2SAT 99
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
[2016-12-06] MEDS: LACTULOSE SYRUP 20 GM/30 ML CUP PO SCH (12:59)
[2016-12-06] MEDS: HYDROmorphone HCL PF 1 MG/ML VIAL IV PUSH PRN ×3 (14:08→23:29)
[2016-12-06 16:00] VITALS: BP 113/65; PULSE 96; RESP 18; TEMP 96.3; O2SAT 99
[2016-12-06 20:00] VITALS: BP 126/76; PULSE 83; RESP 18; TEMP 97; O2SAT 99
[2016-12-06] MEDS: FLUCONAZOLE 400 MG PREMIX BAG 200 ML IV SCH (20:09)
[2016-12-06] MEDS: MAGNESIUM HYDROXIDE SUSP 30 ML CUP PO SCH (21:48)
[2016-12-07] VITALS: BP 123/83; PULSE 77; RESP 18; TEMP 97; O2SAT 99
[2016-12-07] MEDS: PIPERACIL-TAZO 4.5 GM PREMIX 100 ML IV SCH ×2 (03:47→08:49)
[2016-12-07] MEDS: HEPARIN SODIUM - SQ 10,000 UNITS/ML VIAL SQ SCH ×3 (05:08→21:43)
[2016-12-07] MEDS: METOCLOPRAMIDE HCL 10 MG/2 ML VIAL IV PUSH SCH ×3 (05:08→21:43)
[2016-12-07] MEDS: SODIUM CHLOR 0.9% 1000 ML INJ 1,000 ML IV SCH ×2 (05:09→16:33)
[2016-12-07] MEDS: HYDROmorphone HCL PF 1 MG/ML VIAL IV PUSH PRN (05:09)
[2016-12-07 07:04] LABS: AUTOMATED NEUTROPHIL # 9.8 TH/MM3 (1.8-7.7); BASOPHIL % 0.2 % (0.0-2.0); EOSINOPHIL # 0.6 TH/MM3 (0-0.4); EOSINOPHIL % 4.4 % (0.0-4.0); HEMO FLAGS DIFF FINAL; LYMPH % 15.7 % (9.0-44.0); LYMPHOCYTE # 2.2 TH/MM3 (1.0-4.8); MEAN CELL VOLUME 90.9 FL (80.0-100.0); MEAN CORPUSCULAR HEMOGLOBIN 30.5 PG (27.0-34.0); MEAN CORPUSCULAR HGB CONC 33.6 % (32.0-36.0); MONO % 8.7 % (0.0-8.0); PLATELET COUNT 289 TH/MM3 (150-450); RED BLOOD COUNT 3.52 MIL/MM3 (4.00-5.30); RED CELL DISTRIBUTION WIDTH 14.5 % (11.6-17.2); WHITE BLOOD COUNT 13.8 TH/MM3 (4.0-11.0)
[2016-12-07 07:25] LABS: ALT (GPT) 16 U/L (10-53); ANION GAP 9 MEQ/L (5-15); AST (GOT) 16 U/L (15-37); BLOOD UREA NITROGEN 3 MG/DL (7-18); CHLORIDE 101 MEQ/L (98-107); GLOMERULAR FILTRATION RATE 186 ML/MIN (>89); POTASSIUM 3.8 MEQ/L (3.5-5.1); SODIUM (NA) 138 MEQ/L (136-145)
[2016-12-07 07:27] LABS: ALKALINE PHOSPHATASE 76 U/L (45-117); TOTAL BILIRUBIN ADULT 0.3 MG/DL (0.2-1.0)
[2016-12-07 08:00] VITALS: BP 116/77; PULSE 89; RESP 19; TEMP 96.4; O2SAT 100
[2016-12-07] MEDS: FAMOTIDINE 20 MG TAB PO SCH ×2 (08:48→21:43)
[2016-12-07] MEDS: FLUoxetine HCL 10 MG CAP PO SCH (08:48)
[2016-12-07] MEDS: LACTULOSE SYRUP 20 GM/30 ML CUP PO SCH (08:48)
[2016-12-07] MEDS: DOCUSATE SODIUM 50 MG/SENNA 8.6 MG TAB PO SCH ×2 (08:48→21:00)
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
[2016-12-07 12:00] VITALS: BP 117/77; PULSE 84; RESP 17; TEMP 96.1; O2SAT 98
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
[2016-12-07] MEDS: metroNIDAZOLE 500 MG TAB PO SCH ×2 (13:57→21:43)
[2016-12-07] MEDS ORDERED: LEVOFLOXACIN 750 MG TAB PO SCH (14:00)
[2016-12-07 16:00] VITALS: BP_SYST 111; BP_SYST 172; BP_DIAS 81; BP_DIAS 85; PULSE 60; PULSE 82; RESP 15; RESP 18; TEMP 97.8; TEMP 98.5; O2SAT 96; O2SAT 99
[2016-12-07 20:00] VITALS: BP 119/72; PULSE 90; RESP 18; TEMP 98; O2SAT 100
[2016-12-07] MEDS: MAGNESIUM HYDROXIDE SUSP 30 ML CUP PO SCH (21:00)
[2016-12-08] VITALS: BP 122/74; PULSE 80; RESP 18; TEMP 98.2; O2SAT 98
[2016-12-08] MEDS ORDERED: HYDROmorphone HCL PF 1 MG/ML VIAL IV PUSH ONE (01:45)
[2016-12-08] MEDS ORDERED: TEMAZEPAM 7.5 MG CAP PO ONE (01:45)
[2016-12-08] MEDS: SODIUM CHLOR 0.9% 1000 ML INJ 1,000 ML IV SCH (06:11)
[2016-12-08] MEDS: HEPARIN SODIUM - SQ 10,000 UNITS/ML VIAL SQ SCH (06:11)
[2016-12-08] MEDS: metroNIDAZOLE 500 MG TAB PO SCH (06:12)
[2016-12-08] MEDS: METOCLOPRAMIDE HCL 10 MG/2 ML VIAL IV PUSH SCH (06:12)
[2016-12-08 08:00] VITALS: BP 108/68; PULSE 84; RESP 20; TEMP 96.9; O2SAT 98
[2016-12-08] MEDS: LACTULOSE SYRUP 20 GM/30 ML CUP PO SCH (09:00)
[2016-12-08] MEDS ORDERED: METR-1 PO (09:08)
[2016-12-08] MEDS ORDERED: HEPA10003 SQ (09:08)
[2016-12-08] MEDS ORDERED: SENN1TAB PO (09:08)
[2016-12-08] MEDS ORDERED: LEVA750T9 PO (09:08)
[2016-12-08] MEDS ORDERED: OXYC-392 PO (09:08)
[2016-12-08] MEDS ORDERED: OXYC-395 PO (09:08)
[2016-12-08] MEDS ORDERED: Lactulose Liq PO (09:08)
[2016-12-08] MEDS: DOCUSATE SODIUM 50 MG/SENNA 8.6 MG TAB PO SCH (09:11)
[2016-12-08] MEDS: FAMOTIDINE 20 MG TAB PO SCH (09:11)
[2016-12-08] MEDS: FLUoxetine HCL 10 MG CAP PO SCH (09:11)
[2016-12-08 11:06] VITALS: RESP 18
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
== END 2016-12-08 11:31 | DRG 330 ==
LOC: HPAC 18:01 → N03A 23:24 → N07A 12-03 16:31
PROVIDERS: ADMIT Surgery; ATTEND Surgery
PROC: 0WJG4ZZ Inspection of Peritoneal Cavity, Percutaneous Endoscopic Approach (ICD-10-PCS; 2016-12-02)
PROC: 0DBL0ZZ Excision of Transverse Colon, Open Approach (ICD-10-PCS; 2016-12-02)
PROC: 0DNE0ZZ Release Large Intestine, Open Approach (ICD-10-PCS; 2016-12-02)
PROC: 0DN80ZZ Release Small Intestine, Open Approach (ICD-10-PCS; 2016-12-02)
PROC: 0DB80ZZ Excision of Small Intestine, Open Approach (ICD-10-PCS; principal; 2016-12-02 18:37)
PROC: 0DQ80ZZ Repair Small Intestine, Open Approach (ICD-10-PCS; 2016-12-02 18:37)
DX: S36.439A Laceration of unspecified part of small intestine, initial encounter (principal); K63.0 Abscess of intestine; S36.531A Laceration of transverse colon, initial encounter; K66.0 Peritoneal adhesions (postprocedural) (postinfection); R10.0 Acute abdomen; S12.000D Unspecified displaced fracture of first cervical vertebra, subsequent encounter for fracture with routine healing; S12.100D Unspecified displaced fracture of second cervical vertebra, subsequent encounter for fracture with routine healing; S32.049D Unspecified fracture of fourth lumbar vertebra, subsequent encounter for fracture with routine healing; S32.059D Unspecified fracture of fifth lumbar vertebra, subsequent encounter for fracture with routine healing; S22.31XD Fracture of one rib, right side, subsequent encounter for fracture with routine healing; S52.301D Unspecified fracture of shaft of right radius, subsequent encounter for closed fracture with routine healing; S62.232D Other displaced fracture of base of first metacarpal bone, left hand, subsequent encounter for fracture with routine healing; S12.101D Unspecified nondisplaced fracture of second cervical vertebra, subsequent encounter for fracture with routine healing; V89.2XXD Person injured in unspecified motor-vehicle accident, traffic, subsequent encounter; S82.201E Unspecified fracture of shaft of right tibia, subsequent encounter for open fracture type I or II with routine healing; S82.401E Unspecified fracture of shaft of right fibula, subsequent encounter for open fracture type I or II with routine healing; S36.039D Unspecified laceration of spleen, subsequent encounter; S36.113D Laceration of liver, unspecified degree, subsequent encounter; S27.321D Contusion of lung, unilateral, subsequent encounter
CPT/HCPCS: 80053; 83735; 84100; 85025; 87040; 87641; 88305; 88307; 94150; C9113; J1170; J1450; J1644; J2250; J2270; J2370; J2405; J2543; J2710; J2765; J3010; J3480; J7030